=== PATIENT | female | born 1965 | race Caucasian/White ===

== ENCOUNTER 2020-02-26 12:37 | Emergency (ER) | payer OTHER, SELFPAY ==
--- NOTE | ~2020-02-26 | XR_ITS ---
XR knee RT 3V 02/26/2020 14:15 Indication: Right knee pain Procedure: 3 views right knee Comparison: No prior studies for comparison. Findings: No acute fracture or traumatic malalignment. There is a small joint effusion. No significan t degenerative change. No radiopaque foreign bodies. Mild prepatellar soft tissue swelling. Impression: 1: Small joint effusion with mild prepatellar soft tissue swelling. Reviewed, dictated and finalized at location A. Impression: 1: Small joint effusion with mild prepatellar soft tissue swelling.
--- NOTE | ~2020-02-26 | US_ITS ---
EXAMINATION:US venous doppler LE RT INDICATION:Leg swelling TECHNIQUE: Multiple grayscale, color flow and Doppler images of the right lower extremity deep venous systems were obtained and reviewed. COMPARISON:No prior studies for comparison. FINDINGS: The common femoral, superficial femoral and popliteal veins demonstrate normal respiratory variation, augmentation and compressibility. Color flow is also seen within the posterior tibial, pe roneal, greater saphenous and profunda veins. IMPRESSION: 1: No lower extremity deep venous thrombosis. Reviewed, dictated and finalized at location A.
[2020-02-26 12:51] VITALS: BP 110/82; PULSE 80; RESP 18; TEMP 37; O2SAT 99
--- NOTE | 2020-02-26 13:22 | ED.GENADULT ---
HPI - General Adult General Chief complaint: Extremity Injury, Lower Stated complaint: KNEE PAIN & SWELLING Time Seen by Provider: 02/26/20 13:03 Source: patient Mode of arrival: ambulatory Limitations: no limitations History of Present Illness HPI narrative: Patient is a 54-year-old female who presents to emergency department for evaluation of right leg swelling and knee swelling noting aching pain worse with weightbearing and activity felt a pop in the knee while ambulating initially had moderate aching pain and swelling at the medial aspect of the right knee patient notes that today she woke and has noticed that she has swelling of the Mr. Flores first 82-year-old single right foot is notes aching pain worse with weightbearing and activity denies any injury of the foot and is otherwise resting comfortably in the room on arrival in no distress presents per private vehicle Related Data Allergies Allergy/AdvReac Type Severity Reaction Status Date / Time aspirin Allergy Unknown Verified 05/12/18 18:50 ciprofloxacin Allergy Unknown Verified 05/12/18 18:50 codeine Allergy Unknown Dyspnea / Verified 05/12/18 18:50 SOB erythromycin base Allergy Unknown Verified 05/12/18 18:50 NSAIDS (Non-Steroidal Allergy Unknown Verified 05/12/18 18:50 Anti-Inflamma Penicillins Allergy Unknown Verified 05/12/18 18:50 Sulfa (Sulfonamide Allergy Unknown Verified 05/12/18 18:50 Antibiotics) Review of Systems Review of Systems: All systems reviewed & are unremarkable except as noted in HPI and below PMFSH Past Medical History Medical History (Updated 02/26/20 @ 14:49 by Derek Valencia PA-C) Bipolar disorder Social History Social History (Updated 02/26/20 @ 13:25 by Derek Valencia PA-C) Smoking status: Current every day smoker Gender identity (if verbalized by the patient): Female Exam Narrative: Exam Narrative: GENERAL: Well-appearing, well-nourished, and in no acute distress. HEAD: Normocephalic, atraumatic. EYES: PERRLA and EOMI. ENT: Nares clear, no rhinorrhea or epistaxis. Mucous membranes moist. CHEST: Clear to auscultation. No respiratory distress. No wheezes rales or rhonchi HEART: Regular rate and rhythm. No murmur heard. Normal peripheral pulses. EXTREMITIES: Normal range of motion. Tenderness of the medial aspect of the right knee minimal swelling noted. 1+ edema of the dorsal surface of the right foot with mild tenderness no erythema or other complaints SKIN: Warm, dry, no rash. NEURO: No focal deficits. Alert and oriented x3. Neurovascularly intact. Capillary refill less than 2 seconds PSYCH: Normal mood and affect. Course Course Emergency Course: Patient in the room aware of case findings treatment plan and diagnosis agreeing to follow-up as directed or to return if symptoms worsen or concerns Vital Signs Vital signs: Vital Signs Temperature 98.6 F 02/26/20 12:51 Pulse Rate 80 02/26/20 12:51 Respiratory Rate 18 02/26/20 12:51 Blood Pressure 110/82 02/26/20 12:51 Pulse Oximetry 99 02/26/20 12:51 Temperature 98.6 F 02/26/20 12:51 Pulse Rate 80 02/26/20 12:51 Respiratory Rate 18 02/26/20 12:51 Blood Pressure 110/82 02/26/20 12:51 Pulse Oximetry 99 02/26/20 12:51 Medical Decision Making MDM Narrative Medical decision making narrative: Patients injury or pain is consistent with musculoskeletal etiology. No signs of neurological or vascular compromise on exam. Compartments and tisues are soft without signs of compartment syndrome. Pain is felt appropriate for further evaluation on an outpatient basis. Vital Signs Vital Signs: Vital Signs Temperature 98.6 F 02/26/20 12:51 Pulse Rate 80 02/26/20 12:51 Respiratory Rate 18 02/26/20 12:51 Blood Pressure 110/82 02/26/20 12:51 Pulse Oximetry 99 02/26/20 12:51 Temperature 98.6 F 02/26/20 12:51 Pulse Rate 80 02/26/20 12:51 Respiratory Rate 18 02/26/20 12:51 Blood Pressure 110/82
[2020-02-26 15:05] VITALS: BP 122/70; PULSE 78; RESP 18; O2SAT 99
== END 2020-02-26 15:08 | disposition home or self-care (01) ==
PROVIDERS: Emergency Provider Emergency Medicine
DX: M25.561 Pain in right knee (principal)
CPT/HCPCS: 73562; 93971; 99284

== ENCOUNTER 2020-03-15 12:07 | Outpatient (CLI) | payer OTHER, SELFPAY ==
[2020-03-15 13:33] LABS: Basophils Absolute Auto 0.1 K/mm3 (0.0-0.1); Eosinophils Absolute Auto 0.2 K/mm3 (0-0.3); Eosinophils Percent Auto 2.4 % (0-4.4); Hematocrit 40.5 % (37.0-47.0); Hemoglobin 13.4 g/dL (12.0-15.0); Immature Granulocyte Absolute 0.04 K/mm3 (0.00-0.031); Immature Granulocyte Percent A 0.6 % (0-0.5); Lymphocytes Absolute Auto 2.31 K/mm3 (0.9-3.2); Lymphocytes Percent Auto 33.3 % (18.3-44.2); Mean Corpuscular HGB Conc 33.1 g/dl (32-36); Mean Corpuscular Hemoglobin 29.8 pg (26-34); Mean Platelet Volume 8.8 fl (7.4-10.4); Monocytes Absolute Auto 0.5 K/mm3 (0.1-0.6); Monocytes Percent Auto 7.3 % (2.6-8.5); Neutrophils Absolute Auto 3.8 K/mm3 (1.3-6.7); Neutrophils Percent Auto 55.4 % (45.5-73.1); Platelet Count Result 298 k/mm3 (150-375); Red Cell Distribution Width 14.4 % (11.5-14.5); White Blood Count 6.9 K/mm3 (4.5-10.0)
[2020-03-15 13:48] LABS: Alanine Aminotransferase 16 U/L (4-35); Albumin Level 4.2 g/dL (3.5-5.1); Alkaline Phosphatase 58 U/L (38-126); Aspartate Amino Transferase 17 U/L (14-36); Bilirubin,Total 0.2 mg/dL (0.2-1.3); Blood Urea Nitrogen 18 mg/dL (7-17); Carbon Dioxide 26 mmol/L (22-30); Chloride 104 mmol/L (98-107); Cholesterol 194 mg/dL (0-200); Estimated Glomerular Filt Rate > 60; Glucose 97 mg/dL (65-105); HDL Direct 41 mg/dL; Potassium 4.5 mmol/L (3.4-5.0); Sodium 139 mmol/L (137-145); Triglycerides 262 mg/dL (<150)
[2020-03-15 13:53] LABS: Add Urine Microscopic? YES; Appearance Urine Clear (Clear); Bilirubin Urine Negative (Negative); Blood Urine Negative (Negative); Color Urine Yellow (Yellow); Glucose Urine UA Negative (Negative); Ketones Urine Negative (Negative); Leukocyte Esterase Ur Negative LEU/UL (NEGATIVE); Mucus Urine Rare /lpf; Nitrate Urine Negative (Negative); Protein Urine 1+ mg/dL (Negative); RBC Urine 0-2 /hpf (0-2); Squamous Epithelial Cell Urine Moderate /hpf (Few); Urobilinogen Urine Negative mg/dL (<2.0); WBC Urine 0-3 /hpf (0-3)
[2020-03-15 13:59] LABS: LDL Cholesterol Direct 113 mg/dL
[2020-03-15 14:02] LABS: Iron 71 ug/dL (37-170)
[2020-03-15 14:13] LABS: Percent Iron Saturation 21 % (20-50)
[2020-03-15 14:54] LABS: Folic Acid 4.1 ng/mL (2.76->20)
== END 2020-03-15 12:08 | disposition home or self-care (01) ==
LOC: ANHLAB 12:09
PROVIDERS: PCP Physician Assistant; Visit Provider Physician Assistant
DX: I25.10 Atherosclerotic heart disease of native coronary artery without angina pectoris (principal); F31.9 Bipolar disorder, unspecified; R51 Headache; N20.0 Calculus of kidney
CPT/HCPCS: 36415; 80053; 80061; 81001; 82607; 82746; 83540; 83550; 84443; 85025

== ENCOUNTER 2020-08-28 06:54 | Outpatient (NON) | payer OTHER, SELFPAY ==
[2020-08-29 16:06] LABS: SARS-CoV-2 RNA PCR Negative
== END 2020-08-28 06:55 ==
PROVIDERS: Visit Provider Family Medicine
DX: J20.9 Acute bronchitis, unspecified (principal); Z20.828 Contact with and (suspected) exposure to other viral communicable diseases
CPT/HCPCS: 87635; C9803; U0003

== ENCOUNTER 2020-10-09 16:12 | Emergency (ER) | payer OTHER, SELFPAY ==
--- NOTE | ~2020-10-09 | CT_ITS ---
EXAMINATION: CT abdomen pelvis wo con DATE: 10/09/2020 17:11 INDICATION: Left flank pain TECHNIQUE: Computed tomography (CT) of the abdomen and pelvis was performed without intravenous contr ast. The dose-length product (DLP) was 821.89 mGy-cm. Automated exposure control and iterative recons truction technique were employed. COMPARISON: None FINDINGS: Minimal dependent atelectasis is present in the lung bases. The heart size is normal. The g allbladder is surgically absent. There is mild enlargement of the common bile duct and central intrah epatic ducts which is likely due to post cholecystectomy state. The liver, spleen, pancreas, and adre nal glands are normal. The kidneys are normal. No stones are identified in the kidneys, ureters, or b ladder. There is no hydronephrosis or hydroureter. No pathologically enlarged abdominal or pelvic lym ph nodes are identified. There is no free intraperitoneal gas or evidence of bowel obstruction. There are fat-containing umbilical and periumbilical hernias. Mild lumbar spondylosis is noted. IMPRESSION: 1. No CT correlate for the patient's symptoms. Reviewed, dictated and finalized at location A. HT TESTER
[2020-10-09 16:41] VITALS: BP 128/77; PULSE 86; RESP 18; TEMP 35.8; O2SAT 98
[2020-10-09 17:04] LABS: Basophils Absolute Auto 0.1 K/mm3 (0.0-0.1); Basophils Percent Auto 0.5 % (0.2-1.2); Eosinophils Absolute Auto 0.2 K/mm3 (0-0.3); Eosinophils Percent Auto 1.4 % (0-4.4); Hematocrit 45.8 % (37.0-47.0); Immature Granulocyte Absolute 0.04 K/mm3 (0.00-0.031); Immature Granulocyte Percent A 0.4 % (0-0.5); Lymphocytes Absolute Auto 3.33 K/mm3 (0.9-3.2); Lymphocytes Percent Auto 32.1 % (18.3-44.2); Mean Corpuscular HGB Conc 34.9 g/dl (32-36); Mean Corpuscular Hemoglobin 30.2 pg (26-34); Mean Corpuscular Volume 86.4 fl (80-100); Monocytes Absolute Auto 0.6 K/mm3 (0.1-0.6); Monocytes Percent Auto 6.2 % (2.6-8.5); Neutrophils Absolute Auto 6.2 K/mm3 (1.3-6.7); Neutrophils Percent Auto 59.4 % (45.5-73.1); Platelet Count Result 360 k/mm3 (150-375); Red Cell Distribution Width 13.2 % (11.5-14.5); White Blood Count 10.4 K/mm3 (4.5-10.0)
[2020-10-09 17:11] LABS: Add Urine Microscopic? YES; Appearance Urine Clear (Clear); Bacteria Urine Trace /hpf; Bilirubin Urine Negative (Negative); Blood Urine Negative (Negative); Color Urine Colorless (Yellow); Glucose Urine UA Negative (Negative); Ketones Urine Negative (Negative); Leukocyte Esterase Ur Negative LEU/UL (Negative); Mucus Urine Rare /lpf; Nitrate Urine Negative (Negative); Protein Urine Negative (Negative); Specific Grav Ur 1.009 (1.001-1.035); Squamous Epithelial Cell Urine Moderate /hpf (Few); Urobilinogen Urine Negative mg/dL (<2.0); WBC Urine 0-3 /hpf
[2020-10-09 17:16] LABS: Anion Gap 9 mmol/L (8-16); Blood Urea Nitrogen 13 mg/dL (7-17); Calcium 9.4 mg/dL (8.4-10.2); Carbon Dioxide 26 mmol/L (22-30); Chloride 102 mmol/L (98-107); Estimated CRCL calculation 77 ml/min; Estimated Glomerular Filt Rate > 60; Glucose 102 mg/dL (65-105); Potassium 4.1 mmol/L (3.4-5.0); Sodium 137 mmol/L (137-145)
[2020-10-09] MEDS: SODIUM CHLORIDE 0.9% IV 1,000 ML 999 ML IV CONT (17:43)
[2020-10-09] MEDS: ACETAMINOPHEN 500 MG TABLET 1000 MG PO (17:44)
--- NOTE | 2020-10-09 17:54 | ED.ABDPAIN ---
HPI - Abdominal Pain General Chief Complaint: Urogenital-Female Stated Complaint: left flank pain Time Seen by Provider: 10/09/20 16:52 History of Present Illness HPI narrative: Patient is a 55-year-old female who presents ER with concerns for kidney stone. Last kidney stone was 2 years ago. She has had multiple procedures to remove kidney stones. Reports has been having some flank pain on the left side over the last week. She is now developed lower abdominal pain left lower quadrant. No urinary frequency urgency or hematuria. No dysuria. She has been without fevers chills or sweats. No nausea or vomiting. Has not found any alleviating factors. Related Data Home Medications Medication Instructions Recorded Confirmed alprazolam 0.5 mg tablet 0.5 mg PO TID tablet 03/12/20 03/12/20 aripiprazole 10 mg tablet 10 mg PO DAILY 03/12/20 03/12/20 atorvastatin 40 mg tablet 40 mg PO DAILY 03/12/20 03/12/20 divalproex 250 mg tablet,delayed 250 mg PO Q12H 03/12/20 03/12/20 release estradiol 0.25 mg/0.25 gram (0.1 1 packet TRANSDERM DAILY 03/12/20 03/12/20 %) transdermal gel packet fluoxetine 20 mg capsule 20 mg PO DAILY 03/12/20 03/12/20 hydrochlorothiazide 12.5 mg tablet 12.5 mg PO DAILY 03/12/20 03/12/20 propranolol 80 mg tablet 80 mg PO Q12H 03/12/20 03/12/20 tramadol 50 mg tablet 50 mg PO Q4H PRN 03/12/20 03/12/20 trazodone 100 mg tablet 100 mg PO BID 03/12/20 03/12/20 Allergies Allergy/AdvReac Type Severity Reaction Status Date / Time aspirin Allergy Unknown Hives Verified 10/09/20 16:41 ciprofloxacin Allergy Unknown Unknown Verified 10/09/20 16:41 codeine Allergy Unknown Dyspnea / Verified 05/12/18 18:50 SOB erythromycin base Allergy Unknown Hives Verified 10/09/20 16:41 NSAIDS (Non-Steroidal Allergy Unknown Difficulty Verified 10/09/20 16:41 Anti-Inflamma Breathing Penicillins Allergy Unknown Difficulty Verified 10/09/20 16:41 Breathing Sulfa (Sulfonamide Allergy Unknown Difficulty Verified 10/09/20 16:41 Antibiotics) Breathing Review of Systems Review of Systems: All systems reviewed & are unremarkable except as noted in HPI and below Constitutional: Constitutional: Denies chills, Denies fever(s) and Denies weakness Respiratory: Respiratory: Denies cough and Denies dyspnea Gastrointestinal: Gastrointestinal: Reports abdominal pain, Denies diarrhea, Denies nausea and Denies vomiting Genitourinary: Genitourinary: Denies hematuria, Denies nocturia, Denies dysuria and Reports flank pain PMFSH Past Medical History Medical History (Updated 10/09/20 @ 17:57 by Clark López MD) Acute bronchitis Allergies Anxiety Arthritis Bipolar disorder Bipolar disorder BMI 29.0-29.9,adult Chronic anxiety Chronic headaches Colon polyps Coronary artery disease Depression Frequent headaches History of kidney stones Hypercholesterolemia IBS (irritable bowel syndrome) Irritable bowel syndrome with constipation Kidney stones Osteoarthritis, multiple sites Seasonal allergies Tobacco abuse Surgical History Surgical History (Updated 03/12/20 @ 10:45 by Lei Escobar PA-C) History of ankle surgery Hx of appendectomy Hx of section 1989, 1991 Hx of cholecystectomy Hx of foot surgery x3 Hx of hysterectomy Family History Family History (Updated 03/12/20 @ 09:56 by Rl Graham [employer]) Father Diabetes mellitus Grandparent Cerebrovascular accident Grandparent Cancer Sibling Cancer Social History Social History (Updated 03/12/20 @ 09:57 by Rl Graham [facility]) Smoking status: Current every day smoker Tobacco type: cigarettes Alcohol intake: never Substance use: never Gender identity (if verbalized by the patient): Female Exam Narrative: Exam Narrative: GENERAL: Well-appearing, well-nourished, and in no acute distress. HEAD: Normocephalic, atraumatic. CHEST: Clear to auscultation. No respiratory distress. HEART: Regul
== END 2020-10-09 18:34 | disposition home or self-care (01) ==
PROVIDERS: Emergency Provider Emergency Medicine; PCP Family Medicine
DX: R10.32 Left lower quadrant pain (principal); F41.9 Anxiety disorder, unspecified; M19.90 Unspecified osteoarthritis, unspecified site; F31.9 Bipolar disorder, unspecified; I25.10 Atherosclerotic heart disease of native coronary artery without angina pectoris; F17.210 Nicotine dependence, cigarettes, uncomplicated
CPT/HCPCS: 36415; 74176; 80048; 81001; 85025; 99284; A9270; J7030

== ENCOUNTER → 2021-05-23 04:03 | Outpatient (CLI) | payer OTHER, SELFPAY ==
[2021-05-23 18:14] LABS: SARS-CoV-2 RNA PCR Positive
== END ==
PROVIDERS: PCP Family Medicine; Visit Provider Family Medicine
DX: U07.1 COVID-19 (principal)
CPT/HCPCS: C9803; U0003; U0005

== ENCOUNTER 2021-06-03 15:51 | Outpatient (CLI) | payer OTHER, SELFPAY ==
[2021-06-03 16:18] LABS: Add Urine Microscopic? NO; Appearance Urine Clear (Clear); Bilirubin Urine Negative (Negative); Blood Urine Negative (Negative); Color Urine Colorless (Yellow); Glucose Urine UA Negative (Negative); Ketones Urine Negative (Negative); Leukocyte Esterase Ur Negative LEU/UL (NEGATIVE); Nitrate Urine Negative (Negative); Protein Urine Negative (Negative); Specific Grav Ur 1.006 (1.001-1.035); Urobilinogen Urine Negative mg/dL (<2.0)
[2021-06-03 16:18] LABS: Basophils Absolute Auto 0.1 K/mm3 (0.0-0.1); Basophils Percent Auto 0.8 % (0.2-1.2); Eosinophils Absolute Auto 0.1 K/mm3 (0-0.3); Eosinophils Percent Auto 1.8 % (0-4.4); Hematocrit 39.1 % (37.0-47.0); Hemoglobin 13.1 g/dL (12.0-15.0); Immature Granulocyte Absolute 0.02 K/mm3 (0.00-0.031); Immature Granulocyte Percent A 0.3 % (0-0.5); Lymphocytes Absolute Auto 3.44 K/mm3 (0.9-3.2); Lymphocytes Percent Auto 46.8 % (18.3-44.2); Mean Corpuscular HGB Conc 33.5 g/dl (32-36); Mean Corpuscular Hemoglobin 29.7 pg (26-34); Mean Corpuscular Volume 88.7 fl (80-100); Mean Platelet Volume 9.3 fl (7.4-10.4); Monocytes Absolute Auto 0.5 K/mm3 (0.1-0.6); Monocytes Percent Auto 6.4 % (2.6-8.5); Neutrophils Absolute Auto 3.2 K/mm3 (1.3-6.7); Neutrophils Percent Auto 43.9 % (45.5-73.1); Platelet Count Result 286 k/mm3 (150-375); Red Blood Count 4.41 M/mm3 (4.2-5.4); Red Cell Distribution Width 13.3 % (11.5-14.5); White Blood Count 7.4 K/mm3 (4.5-10.0)
[2021-06-03 16:55] LABS: Alanine Aminotransferase 15 U/L (4-35); Albumin Level 4.1 g/dL (3.5-5.1); Alkaline Phosphatase 68 U/L (38-126); Anion Gap 9 mmol/L (8-16); Aspartate Amino Transferase 18 U/L (14-36); Bilirubin,Total 0.5 mg/dL (0.2-1.3); Blood Urea Nitrogen 8 mg/dL (7-17); Calcium 9.3 mg/dL (8.4-10.2); Carbon Dioxide 30 mmol/L (22-30); Chloride 103 mmol/L (98-107); Cholesterol 116 mg/dL (0-200); Estimated Glomerular Filt Rate > 60; Glucose 96 mg/dL (65-110); HDL Direct 34 mg/dL; Potassium 3.6 mmol/L (3.4-5.0); Sodium 142 mmol/L (137-145); Triglycerides 266 mg/dL (<150)
[2021-06-03 17:08] LABS: LDL Cholesterol Direct 42 mg/dL
[2021-06-03 17:21] LABS: Iron 73 ug/dL (37-170)
[2021-06-03 17:22] LABS: Hemoglobin A1C 5.6 % (<5.7)
[2021-06-04 15:54] LABS: Folic Acid 4.9 ng/mL (2.76->20)
== END 2021-06-03 15:52 | disposition home or self-care (01) ==
LOC: ANHLAB 15:53
PROVIDERS: PCP Family Medicine; Visit Provider Family Medicine
DX: E78.2 Mixed hyperlipidemia (principal); N20.0 Calculus of kidney; F31.9 Bipolar disorder, unspecified; G47.33 Obstructive sleep apnea (adult) (pediatric)
CPT/HCPCS: 36415; 80053; 80061; 81003; 82607; 82746; 83036; 83540; 84443; 85025

== ENCOUNTER 2023-02-16 09:53 | Outpatient (CLI) | payer OTHER, SELFPAY ==
[2023-02-16 10:13] LABS: Basophils Absolute Auto 0.1 K/mm3 (0.0-0.1); Basophils Percent Auto 0.8 % (0.2-1.2); Eosinophils Absolute Auto 0.2 K/mm3 (0-0.3); Eosinophils Percent Auto 2.7 % (0-4.4); Hemoglobin 13.9 g/dL (12.0-15.0); Immature Granulocyte Absolute 0.03 K/mm3 (0.00-0.031); Immature Granulocyte Percent A 0.4 % (0-0.5); Lymphocytes Absolute Auto 2.52 K/mm3 (0.9-3.2); Lymphocytes Percent Auto 32.5 % (18.3-44.2); Mean Corpuscular HGB Conc 34.8 g/dl (32-36); Mean Corpuscular Volume 86.2 fl (80-100); Mean Platelet Volume 8.7 fl (7.4-10.4); Monocytes Absolute Auto 0.5 K/mm3 (0.1-0.6); Monocytes Percent Auto 6.2 % (2.6-8.5); Neutrophils Absolute Auto 4.5 K/mm3 (1.3-6.7); Neutrophils Percent Auto 57.4 % (45.5-73.1); Platelet Count Result 363 k/mm3 (150-375); Red Blood Count 4.64 M/mm3 (4.2-5.4); Red Cell Distribution Width 13.5 % (11.5-14.5); White Blood Count 7.8 K/mm3 (4.5-10.0)
[2023-02-16 10:28] LABS: Hemoglobin A1C 5.7 % (<5.7)
[2023-02-16 10:32] LABS: Anion Gap 9 mmol/L (8-16); Carbon Dioxide 28 mmol/L (22-30); Chloride 102 mmol/L (98-107); Potassium 3.7 mmol/L (3.4-5.0); Sodium 139 mmol/L (137-145)
[2023-02-16 10:33] LABS: Alanine Aminotransferase 53 U/L (6-35); Albumin Level 4.3 g/dL (3.5-5.1); Alkaline Phosphatase 79 U/L (38-126); Aspartate Amino Transferase 33 U/L (14-36); Bilirubin,Total 0.6 mg/dL (0.2-1.3); Blood Urea Nitrogen 12 mg/dL (7-17); Cholesterol 156 mg/dL (0-200); Estimated Glomerular Filt Rate > 60; Glucose 116 mg/dL (65-110); HDL Direct 39 mg/dL; Triglycerides 380 mg/dL (<150)
[2023-02-16 10:43] LABS: Appearance Urine Cloudy (Clear); Bacteria Urine 1+ /hpf; Bilirubin Urine Negative (Negative); Blood Urine Negative (Negative); Color Urine Yellow (Yellow); Glucose Urine UA Negative (Negative); Ketones Urine Negative (Negative); Leukocyte Esterase Ur Negative LEU/UL (NEGATIVE); Mucus Urine Present /lpf; Nitrate Urine Negative (Negative); Non Pathogenic Casts 0-2; Protein Urine Negative (Negative); RBC Urine 0-2 /hpf (0-2); Specific Grav Ur 1.017 (1.001-1.035); Squamous Epithelial Cell Urine Moderate /hpf (Few)
[2023-02-16 10:43] LABS: LDL Cholesterol Direct 67 mg/dL
[2023-02-16 10:51] LABS: Add Urine Microscopic? YES
[2023-02-16 11:36] LABS: Folic Acid 2.9 ng/mL (2.76->20)
== END 2023-02-16 09:54 | disposition home or self-care (01) ==
LOC: ANHLAB 09:54
PROVIDERS: PCP Family Medicine; Visit Provider Family Medicine
DX: G47.33 Obstructive sleep apnea (adult) (pediatric) (principal); E78.2 Mixed hyperlipidemia; R73.01 Impaired fasting glucose; F31.9 Bipolar disorder, unspecified
CPT/HCPCS: 36415; 80053; 80061; 81001; 82607; 82746; 83036; 84443; 85025

== ENCOUNTER → 2023-10-22 10:40 | Outpatient (CLI) | payer OTHER, SELFPAY ==
--- NOTE | ~2023-10-22 | XR_ITS ---
XR finger 2nd LT min 2V DATE: 10/22/2023 10:53 INDICATION: Foreign body/glass at DIP joint area TECHNIQUE: 4 views COMPARISON: None FINDINGS: No radiopaque soft tissue foreign body is present. No fracture or dislocation, periosteal reaction or bone destruction. Joint spaces appear relatively p reserved. IMPRESSION: No radiopaque soft tissue foreign body of second digit Reviewed, dictated and finalized at location B. TRICAL CAD TECHNICIAN
== END ==
PROVIDERS: PCP Family Medicine; Visit Provider Nurse Practitioner Family
DX: S61.211A Laceration without foreign body of left index finger without damage to nail, initial encounter (principal); X58.XXXA Exposure to other specified factors, initial encounter
CPT/HCPCS: 73140

== ENCOUNTER 2024-01-25 00:21 | Day surgery (SDC) | payer OTHER, SELFPAY ==
[2024-01-07 11:42] VITALS: BMI 32.3
[2024-01-25 07:41] VITALS: BP 132/88; PULSE 88; RESP 18; TEMP 36; O2SAT 97
[2024-01-25] MEDS: LACTATED RINGERS 1,000 ML 150 ML IV CONT (07:52)
--- NOTE | 2024-01-25 08:14 | PM.HPGS ---
History of Present Illness History of Present Illness Consent: Risks, benefits, and alternatives have been discussed and questions answered. Patient agrees to proceed with procedure. Chief complaint: Polyp of colon, Irritable bowel syndrome-C Narrative: Mena Hebert is a 58 year old female with colon polyp 5 years ago Review of Systems Review of Systems: All systems reviewed & are unremarkable except as noted in HPI and below PMFSH Past Medical History Medical History (Updated 10/22/23 @ 10:46 by Nereyda Correa NP) Abnormal fasting glucose glucose normal at 96 with hemoglobin A1c 5.6 on 06/03/2021. Fasting glucose 116 with hemoglobin A1c 5.7 on 02/16/2023. Hemoglobin A1c 6.1 on 10/15/2023. Abscessed tooth Acute bronchitis Atypical chest pain Bipolar disorder BMI 27.0-27.9,adult BMI 28.0-28.9,adult BMI 29.0-29.9,adult BMI 30.0-30.9,adult BMI 32.0-32.9,adult Chronic anxiety Chronic headaches Colon polyps Coronary artery disease Cardiac catheterization 2016 with 20% lesion in the distal circumflex artery with normal echocardiogram 2018 and stress test in 2019 followed by chute tender RK-19 (05/20/21) Cut of skin of left index finger Edema of both lower extremities due to peripheral venous insufficiency (~2021) venous Doppler on 09/29/2022 with no evidence of DVT. Significant venous insufficiency of the right greater and small saphenous veins. Elevated liver enzymes (02/16/23) AST normal at 33 with ALT elevated at 53 on 02/16/2023. Essential (primary) hypertension Exposure to COVID-19 virus Frequent headaches History of kidney stones Hormone replacement therapy Patient stopped due to noncompliance Irritable bowel syndrome with constipation Kidney stones Mixed hyperlipidemia total cholesterol 116, triglycerides 266, HDL 34 and LDL 42 on 06/03/2021. Cholesterol 156, triglycerides 380, HDL 39, LDL 67 on 02/16/2023. Obesity (BMI 30.0-34.9) Obstructive sleep apnea failure on CPAP Osteoarthritis, multiple sites Overweight (BMI 25.0-29.9) Pain of finger of left hand Pharyngitis Screening for breast cancer Seasonal allergies Suprapubic pain Tobacco abuse Vitamin B12 deficiency (02/16/23) level low at 305 with goal greater than 400 with folic acid and 2.9 in hemoglobin 13.9 on 02/16/2023. Surgical History Surgical History H/O tubal ligation History of ankle surgery Hx of abdominal surgery Hx of appendectomy Hx of section 1989, 1991 Hx of cholecystectomy Hx of foot surgery x3 Hx of hysterectomy partial and full Family History Family History Father Diabetes mellitus Grandparent Cerebrovascular accident Grandparent Cancer Sibling Cancer Social History Social History Smoking packs per day: 0.5 Smoking cigarettes per day: 10.0 Years smoked: 10 Smoking pack-years: 5.00 Smoking status: Current every day smoker Tobacco type: cigarettes Alcohol intake: never Substance use: current Substance use type: marijuana Other substance usage details: gummies on occasion Last use: 01/04 Lack of Transportation: YES Lack of Food: Never True Current Housing: I Have Housing Concerned About Future Housing: No Difficulty Paying Gas/Electric Bills: No Difficulty Paying for Meds: No Currently Unemployed: No Education: High School Diploma/GED Difficulty w/ Childcare or Family Care: No Living arrangements: with friend(s) Gender identity (if verbalized by the patient): Female Spiritual care concerns: No Meds Home Medications and Allergies Home Medications Medication Instructions Recorded Confirmed Type atorvastatin 40 mg tablet 40 mg PO DAILY 03/12/20 01/07/24 History fluoxetine 20 mg capsule 40 mg PO DAILY 03/12/20 01/07/24 History hydrochlorothiazide 12.5
--- NOTE | 2024-01-25 08:30 | WPDANESEPPF ---
Anes - Initial Pre Proc Eval Procedure: Operation Date: 01/25/24 09:00 Proposed Procedures p Colonoscopy - Luiz Menchaca MD Date/Time: 01/25/24 08:30 Surgeon: Luiz Menchaca MD Pre Op Diagnosis: Polyp of colon, Irritable bowel syndrome-C Patient Data Age: 58 Gender: F Height: 1.68 m Weight: 94.9 kg Last Vital Signs Temp 96.8 F L 01/25/24 07:41 Pulse 88 01/25/24 07:41 Resp 18 01/25/24 07:41 BP 132/88 01/25/24 07:41 Pulse Ox 97 01/25/24 07:41 O2 Del Method Room Air 01/25/24 07:41 Allergies Allergy/AdvReac Type Severity Reaction Status Date / Time aspirin Allergy Unknown Hives Verified 01/25/24 07:40 ciprofloxacin Allergy Unknown Unknown Verified 01/25/24 07:40 codeine Allergy Unknown Dyspnea / Verified 01/25/24 07:40 SOB erythromycin base Allergy Unknown Hives Verified 01/25/24 07:40 NSAIDS (Non-Steroidal Allergy Unknown Difficulty Verified 01/25/24 07:40 Anti-Inflamma Breathing Penicillins Allergy Unknown Difficulty Verified 01/25/24 07:40 Breathing Sulfa (Sulfonamide Allergy Unknown Difficulty Verified 01/25/24 07:40 Antibiotics) Breathing Home Medications Medication Instructions Recorded Confirmed Type atorvastatin 40 mg tablet 40 mg PO DAILY 03/12/20 01/07/24 History fluoxetine 20 mg capsule 40 mg PO DAILY 03/12/20 01/07/24 History hydrochlorothiazide 12.5 mg tablet 12.5 mg PO DAILY 03/12/20 01/07/24 History venlafaxine 75 mg capsule,extended 37.5 mg PO DAILY 12/18/20 01/07/24 History release 24 hr (Effexor XR) nitroglycerin 0.4 mg sublingual 0.4 mg sublingual Q5M PRN Chest 06/02/21 01/07/24 History tablet Pain cariprazine 4.5 mg capsule 1.5 mg PO DAILY 04/13/22 01/07/24 History (Vraylar) hydroxyzine HCl 50 mg tablet 50 mg PO BID PRN anxiety 04/13/22 01/07/24 History buspirone 10 mg tablet 7.5 mg PO BID 10/21/22 01/07/24 History cyanocobalamin (vitamin B-12) 1,000 mcg PO DAILY 04/11/23 01/07/24 History 1,000 mcg tablet propranolol 80 mg capsule,24 80 mg PO DAILY #90 caps 08/06/23 01/07/24 Rx hr,extended release amlodipine 10 mg tablet 10 mg PO DAILY 08/14/23 01/07/24 History famotidine 20 mg tablet (Pepcid) 20 mg PO QHS PRN reflux 10/22/23 01/07/24 History meloxicam 15 mg tablet 15 mg PO DAILY 10/22/23 01/07/24 History Patient hx anesthesia problems: none Family hx anesthesia problems: none Results Review: All pre-operative results and documents have been reviewed as part of the pre-operative evaluation. [facility] Past Medical History Medical History (Updated 10/22/23 @ 10:46 by Neryeda Correa NP) Abnormal fasting glucose glucose normal at 96 with hemoglobin A1c 5.6 on 06/03/2021. Fasting glucose 116 with hemoglobin A1c 5.7 on 02/16/2023. Hemoglobin A1c 6.1 on 10/15/2023. Abscessed tooth Acute bronchitis Atypical chest pain Bipolar disorder BMI 27.0-27.9,adult BMI 28.0-28.9,adult BMI 29.0-29.9,adult BMI 30.0-30.9,adult BMI 32.0-32.9,adult Chronic anxiety Chronic headaches Colon polyps Coronary artery disease Cardiac catheterization 2016 with 20% lesion in the distal circumflex artery with normal echocardiogram 2018 and stress test in 2019 followed by contact acid plant operator CHRIS (05/20/21) Cut of skin of left index finger Edema of both lower extremities due to peripheral venous insufficiency (~2021) venous Doppler on 09/29/2022 with no evidence of DVT. Significant venous insufficiency of the right greater and small saphenous veins. Elevated liver enzymes (02/16/23) AST normal at 33 with ALT elevated at 53 on 02/16/2023. Essential (primary) hypertension Exposure to COVID-19 virus Frequent headaches History of kidney stones Hormone replacement therapy Patient stopped due to noncompliance Irritable bowel syndrome with constipation Kidney stones Mixed hyperlipidemia total cholesterol 116, triglycerides 266, HDL 34 and LDL 42 on 06/03/2021. Cholesterol 156, triglycerides 380, HDL 39, LDL 67 on 02/16/2023. Obe
[2024-01-25 08:31] VITALS: BP 131/85; PULSE 107; RESP 23; O2SAT 93
[2024-01-25 08:41] VITALS: BP 126/79; PULSE 86; RESP 20; O2SAT 94
[2024-01-25 08:51] VITALS: BP 132/84; PULSE 85; RESP 18; O2SAT 95
== END 2024-01-25 08:53 | disposition home or self-care (01) ==
PROVIDERS: PCP Family Medicine; Visit Provider Internal Medicine Gastroenterology
PROC: 0DJD8ZZ Inspection of Lower Intestinal Tract, Via Natural or Artificial Opening Endoscopic (ICD-10-PCS; CPT 45378; principal; 2024-01-25 09:00)
DX: Z12.11 Encounter for screening for malignant neoplasm of colon (principal); I25.10 Atherosclerotic heart disease of native coronary artery without angina pectoris; I10 Essential (primary) hypertension; E78.2 Mixed hyperlipidemia; G47.33 Obstructive sleep apnea (adult) (pediatric); F41.9 Anxiety disorder, unspecified; F31.9 Bipolar disorder, unspecified; E53.8 Deficiency of other specified B group vitamins; E66.9 Obesity, unspecified; Z68.33 Body mass index [BMI] 33.0-33.9, adult; F17.210 Nicotine dependence, cigarettes, uncomplicated; F12.90 Cannabis use, unspecified, uncomplicated
CPT/HCPCS: 45378; J2704; J7120

== ENCOUNTER 2024-05-03 18:13 | Emergency (ER) | payer OTHER, SELFPAY ==
[2024-05-03 18:21] VITALS: BP 120/80; PULSE 96; RESP 16; TEMP 37.2; O2SAT 99
--- NOTE | 2024-05-03 18:24 | ED.BACK ---
HPI - Back Pain/Injury General Chief Complaint: Urogenital-Female Stated Complaint: UTI Time Seen by Provider: 05/03/24 18:30 Source: patient Mode of arrival: ambulatory Limitations: no limitations History of Present Illness HPI Narrative: Mena is a 58-year-old female patient presenting to the clinic today with complaints of right-sided flank pain and right lower quadrant abdominal pain. States that she does have a history of kidney stones and did pass a kidney stone on Wednesday and felt as though another kidney stone was passing however she believes that it may be obstructed. She denies any urinary symptoms but states every time she urinates she has to poop. She is reporting some nausea. Rates the pain 8/10 constant pain that is sharp and stabbing. States that this is what it feels like when she passes a kidney stone. Denies any fever or chills. Related Data Home Medications Medication Instructions Recorded Confirmed atorvastatin 40 mg tablet 40 mg PO DAILY 03/12/20 05/03/24 fluoxetine 20 mg capsule 40 mg PO DAILY 03/12/20 05/03/24 hydrochlorothiazide 12.5 mg tablet 12.5 mg PO DAILY 03/12/20 05/03/24 venlafaxine 75 mg capsule,extended 37.5 mg PO DAILY 12/18/20 05/03/24 release 24 hr (Effexor XR) nitroglycerin 0.4 mg sublingual 0.4 mg sublingual Q5M PRN Chest 06/02/21 05/03/24 tablet Pain cariprazine 4.5 mg capsule 1.5 mg PO DAILY 04/13/22 05/03/24 (Vraylar) hydroxyzine HCl 50 mg tablet 50 mg PO BID PRN anxiety 04/13/22 05/03/24 buspirone 10 mg tablet 7.5 mg PO BID 10/21/22 05/03/24 cyanocobalamin (vitamin B-12) 1,000 mcg PO DAILY 04/11/23 05/03/24 1,000 mcg tablet amlodipine 10 mg tablet 10 mg PO DAILY 08/14/23 05/03/24 famotidine 20 mg tablet (Pepcid) 20 mg PO QHS PRN reflux 10/22/23 05/03/24 meloxicam 15 mg tablet 15 mg PO DAILY 10/22/23 05/03/24 Allergies Allergy/AdvReac Type Severity Reaction Status Date / Time codeine Allergy Severe Dyspnea / Verified 05/03/24 18:24 SOB NSAIDS (Non-Steroidal Allergy Severe Difficulty Verified 05/03/24 18:24 Anti-Inflamma Breathing Penicillins Allergy Severe Difficulty Verified 05/03/24 18:24 Breathing Sulfa (Sulfonamide Allergy Severe Difficulty Verified 05/03/24 18:24 Antibiotics) Breathing aspirin Allergy Intermediate Hives Verified 05/03/24 18:24 erythromycin base Allergy Intermediate Hives Verified 05/03/24 18:24 ciprofloxacin Allergy Unknown Unknown Verified 05/03/24 18:24 Review of Systems Review of Systems: Pertinent positives per HPI. Patient denies any fever, chills, rash, headache, visual changes, dizziness, cough, runny nose, sore throat, shortness of breath, chest pain, palpitations, vomiting, diarrhea, constipation, abdominal pain, or any urinary issues. [facility] Past Medical History Medical History Abnormal fasting glucose glucose normal at 96 with hemoglobin A1c 5.6 on 06/03/2021. Fasting glucose 116 with hemoglobin A1c 5.7 on 02/16/2023. Hemoglobin A1c 6.1 on 10/15/2023. Abscessed tooth Acute bronchitis Atypical chest pain Bipolar disorder BMI 27.0-27.9,adult BMI 28.0-28.9,adult BMI 29.0-29.9,adult BMI 30.0-30.9,adult BMI 32.0-32.9,adult Chronic anxiety Chronic headaches Colon polyps Colonoscopy was normal on 01/25/2024 with recheck in 5 years. Coronary artery disease Cardiac catheterization 2016 with 20% lesion in the distal circumflex artery with normal echocardiogram 2018 and stress test in 2019 followed by netting inspector RK-19 (05/20/21) Cut of skin of left index finger Edema of both lower extremities due to peripheral venous insufficiency (~2021) venous Doppler on 09/29/2022 with no evidence of DVT. Significant venous insufficiency of the right greater and small saphenous veins. Elevated liver enzymes (02/16/23) AST normal at 33 with ALT elevated at 53 on 02/16/2023. Essential (primary) hypertension Exposure to COVID-19 virus Frequent headaches History of k
[2024-05-03 18:33] LABS: EDUAAPPEAR Clear; EDUABILI Negative; EDUABLOOD Negative; EDUACOLOR1 Yellow; EDUAGLUCOSE Negative; EDUAKETONE Negative; EDUALEUKO Negative; EDUANITRATE Negative; EDUAPROTEIN Trace; EDUAUROBILI 0.2
== END 2024-05-03 18:51 | disposition short-term general hospital (02) ==
PROVIDERS: Emergency Provider Nurse Practitioner Family; PCP Family Medicine
DX: R10.9 Unspecified abdominal pain (principal); R10.31 Right lower quadrant pain; Z87.442 Personal history of urinary calculi; F17.210 Nicotine dependence, cigarettes, uncomplicated; F12.90 Cannabis use, unspecified, uncomplicated; I25.10 Atherosclerotic heart disease of native coronary artery without angina pectoris; I10 Essential (primary) hypertension; E78.2 Mixed hyperlipidemia; M15.9 Polyosteoarthritis, unspecified; E53.8 Deficiency of other specified B group vitamins; E66.9 Obesity, unspecified; Z68.34 Body mass index [BMI] 34.0-34.9, adult; Z86.16 Personal history of COVID-19
CPT/HCPCS: 81003; 99212; G0463

== ENCOUNTER 2024-05-03 19:06 | Emergency (ER) | payer OTHER, SELFPAY ==
--- NOTE | ~2024-05-03 | CT_ITS ---
EXAMINATION: CT abdomen pelvis wo con DATE: 05/03/2024 20:34 INDICATION: Right flank pain. Nephrolithiasis. TECHNIQUE: Computed tomography (CT) of the abdomen and pelvis was performed without intravenous contr ast. Automated exposure control and iterative reconstruction technique were employed. The dose-length product was 799.41 mGy-cm. COMPARISON: 10/09/2020 FINDINGS: Lung bases are clear. Heart size is normal. No pericardial or pleural effusion. Small sliding-type hi atal hernia. Cholecystectomy clips the gallbladder fossa. 5 mm hepatic cyst. Spleen, pancreas and nigel ateral adrenal glands are normal. Kidneys and ureters are normal with no urolithiasis, hydroureterone phrosis or perinephric/ureteral stranding. A few unchanged phleboliths in the pelvis. Bladder is norm al. The uterus is not identified and has likely been surgically resected. Small bilateral fat-contain ing inguinal hernias. Bowels are normal. The appendix is not visualized. No pericecal inflammatory ch henry to suggest acute appendicitis. No free intraperitoneal gas or fluid. No pathologically enlarged abdominal or pelvic lymphadenopathy. L1 hemangioma. IMPRESSION: 1. No urolithiasis or other acute intra-abdominal/pelvic process. Reviewed, dictated and finalized at location A.
[2024-05-03 19:17] VITALS: BP 135/85; PULSE 104; RESP 14; TEMP 36.5; O2SAT 100
[2024-05-03 19:55] LABS: Basophils Percent Auto 0.4 % (0.2-1.2); Eosinophils Absolute Auto 0.2 K/mm3 (0-0.3); Eosinophils Percent Auto 2.4 % (0-4.4); Hematocrit 40.8 % (37.0-47.0); Hemoglobin 14.6 g/dL (12.0-15.0); Immature Granulocyte Absolute 0.04 K/mm3 (0.00-0.031); Immature Granulocyte Percent A 0.4 % (0-0.5); Lymphocytes Absolute Auto 3.14 K/mm3 (0.9-3.2); Lymphocytes Percent Auto 33.5 % (18.3-44.2); Mean Corpuscular HGB Conc 35.8 g/dl (32-36); Mean Corpuscular Hemoglobin 28.9 pg (26-34); Mean Corpuscular Volume 80.6 fl (80-100); Mean Platelet Volume 8.3 fl (7.4-10.4); Monocytes Absolute Auto 0.5 K/mm3 (0.1-0.6); Monocytes Percent Auto 5.8 % (2.6-8.5); Neutrophils Absolute Auto 5.4 K/mm3 (1.3-6.7); Neutrophils Percent Auto 57.5 % (45.5-73.1); Platelet Count Result 426 k/mm3 (150-375); Red Blood Count 5.06 M/mm3 (4.2-5.4); Red Cell Distribution Width 13.9 % (11.5-14.5); White Blood Count 9.4 K/mm3 (4.5-10.0)
[2024-05-03 20:06] LABS: Alanine Aminotransferase 27 U/L (6-35); Albumin Level 4.6 g/dL (3.5-5.1); Alkaline Phosphatase 86 U/L (38-126); Anion Gap 12 mmol/L (4-12); Aspartate Amino Transferase 26 U/L (14-36); Bilirubin,Total 0.7 mg/dL (0.2-1.3); Blood Urea Nitrogen 18 mg/dL (7-17); Calcium 9.5 mg/dL (8.4-10.2); Carbon Dioxide 24 mmol/L (22-30); Chloride 102 mmol/L (98-107); Estimated CRCL calculation 88 ml/min; Estimated Glomerular Filt Rate > 60; Glucose 112 mg/dL (65-110); Lipase 166 U/L (23-300); Potassium 3.6 mmol/L (3.4-5.0); Sodium 138 mmol/L (137-145)
--- NOTE | 2024-05-03 20:26 | ED.ABDPAIN ---
HPI - Abdominal Pain General Chief Complaint: Abdominal Pain Stated Complaint: flank pain Time Seen by Provider: 05/03/24 19:34 Source: patient Mode of arrival: ambulatory Limitations: no limitations History of Present Illness HPI narrative: Patient is a 58 y/o female who presents the ED with report of right flank pain. Patient reports pain began over the weekend and has persisted since then. Radiates through to her lower abdomen. She reports history of kidney stones and states pain feels similar. Does not currently see a urologist. reports nausea, vomiting, hot/cold sweats. Denies dysuria, hematuria, known fevers. Has been taking Tylenol for the pain w/o relief. Related Data Home Medications Medication Instructions Recorded Confirmed atorvastatin 40 mg tablet 40 mg PO DAILY 03/12/20 05/03/24 fluoxetine 20 mg capsule 40 mg PO DAILY 03/12/20 05/03/24 hydrochlorothiazide 12.5 mg tablet 12.5 mg PO DAILY 03/12/20 05/03/24 venlafaxine 75 mg capsule,extended 37.5 mg PO DAILY 12/18/20 05/03/24 release 24 hr (Effexor XR) nitroglycerin 0.4 mg sublingual 0.4 mg sublingual Q5M PRN Chest 06/02/21 05/03/24 tablet Pain cariprazine 4.5 mg capsule 1.5 mg PO DAILY 04/13/22 05/03/24 (Vraylar) hydroxyzine HCl 50 mg tablet 50 mg PO BID PRN anxiety 04/13/22 05/03/24 buspirone 10 mg tablet 7.5 mg PO BID 10/21/22 05/03/24 cyanocobalamin (vitamin B-12) 1,000 mcg PO DAILY 04/11/23 05/03/24 1,000 mcg tablet amlodipine 10 mg tablet 10 mg PO DAILY 08/14/23 05/03/24 famotidine 20 mg tablet (Pepcid) 20 mg PO QHS PRN reflux 10/22/23 05/03/24 meloxicam 15 mg tablet 15 mg PO DAILY 10/22/23 05/03/24 Allergies Allergy/AdvReac Type Severity Reaction Status Date / Time codeine Allergy Severe Dyspnea / Verified 05/03/24 18:24 SOB NSAIDS (Non-Steroidal Allergy Severe Difficulty Verified 05/03/24 18:24 Anti-Inflamma Breathing Penicillins Allergy Severe Difficulty Verified 05/03/24 18:24 Breathing Sulfa (Sulfonamide Allergy Severe Difficulty Verified 05/03/24 18:24 Antibiotics) Breathing aspirin Allergy Intermediate Hives Verified 05/03/24 18:24 erythromycin base Allergy Intermediate Hives Verified 05/03/24 18:24 ciprofloxacin Allergy Unknown Unknown Verified 05/03/24 18:24 Review of Systems Review of Systems: All systems reviewed & are unremarkable except as noted in HPI. All systems reviewed & are unremarkable except as noted in HPI and below [facility] Past Medical History Medical History Abnormal fasting glucose glucose normal at 96 with hemoglobin A1c 5.6 on 06/03/2021. Fasting glucose 116 with hemoglobin A1c 5.7 on 02/16/2023. Hemoglobin A1c 6.1 on 10/15/2023. Abscessed tooth Acute bronchitis Atypical chest pain Bipolar disorder BMI 27.0-27.9,adult BMI 28.0-28.9,adult BMI 29.0-29.9,adult BMI 30.0-30.9,adult BMI 32.0-32.9,adult Chronic anxiety Chronic headaches Colon polyps Colonoscopy was normal on 01/25/2024 with recheck in 5 years. Coronary artery disease Cardiac catheterization 2016 with 20% lesion in the distal circumflex artery with normal echocardiogram 2018 and stress test in 2019 followed by disk grinder RK-19 (05/20/21) Cut of skin of left index finger Edema of both lower extremities due to peripheral venous insufficiency (~2021) venous Doppler on 09/29/2022 with no evidence of DVT. Significant venous insufficiency of the right greater and small saphenous veins. Elevated liver enzymes (02/16/23) AST normal at 33 with ALT elevated at 53 on 02/16/2023. Essential (primary) hypertension Exposure to COVID-19 virus Frequent headaches History of kidney stones Hormone replacement therapy Patient stopped due to noncompliance Irritable bowel syndrome with constipation Kidney stones Mixed hyperlipidemia total cholesterol 116, triglycerides 266, HDL 34 and LDL 42 on 06/03/2021. Cholesterol 156, triglycerides 380, HDL 39, LDL 67 on 02/16/2023. Obe
[2024-05-03] MEDS: fentaNYL CITRATE INJ (*CRX) 100 MCG/2 ML VIAL 25 MCG IV PUSH (20:39)
[2024-05-03] MEDS: SODIUM CHLORIDE 0.9% IV 1,000 ML 999 ML IV CONT (20:39)
[2024-05-03] MEDS: ONDANSETRON INJ 4 MG/2 ML VIAL IV PUSH (20:39)
[2024-05-03 22:45] LABS: Add Urine Microscopic? YES; Appearance Urine Cloudy (Clear); Bacteria Urine 3+ /hpf; Bilirubin Urine Negative (Negative); Blood Urine Negative (Negative); Color Urine Dark Yellow (Yellow); Glucose Urine UA Negative (Negative); Ketones Urine Negative (Negative); Leukocyte Esterase Ur 1+ LEU/UL (Negative); Need Manual Microscopic Reviewed; Nitrate Urine Negative (Negative); Protein Urine 1+ mg/dL (Negative); RBC Urine 0-2 /hpf (0-2); Specific Grav Ur 1.024 (1.001-1.035); Squamous Epithelial Cell Urine Many /hpf (Few); WBC Urine 51-100 /hpf (0-3); pH Urine 5.5 (5.0-9.0)
[2024-05-03 23:17] VITALS: BP 123/78; PULSE 99; RESP 18; O2SAT 100
[2024-05-03] MEDS: CEPHALEXIN 500 MG CAPSULE PO (23:25)
== END 2024-05-03 23:45 | disposition home or self-care (01) ==
PROVIDERS: Emergency Medicine; Emergency Provider Physician Assistant; PCP Family Medicine
DX: N30.00 Acute cystitis without hematuria (principal); R10.9 Unspecified abdominal pain; F17.210 Nicotine dependence, cigarettes, uncomplicated; F31.9 Bipolar disorder, unspecified; F41.9 Anxiety disorder, unspecified; I10 Essential (primary) hypertension; Z87.442 Personal history of urinary calculi; M19.90 Unspecified osteoarthritis, unspecified site
CPT/HCPCS: 36415; 74176; 80053; 81001; 81003; 83690; 85025; 87086; 87088; 96361; 96374; 96375; 99284; A9270; J2405; J3010; J7030

== ENCOUNTER 2024-07-27 16:36 | Emergency (ER) | payer OTHER, SELFPAY ==
--- NOTE | ~2024-07-27 | CT_ITS ---
CT soft tissue neck w con Ordering provider: Emelia Cabello PA-C History: 59 years Female with . R facial swelling, dental infection . Comparison: None. Technique: CT soft tissues neck was performed with 75 mL of Omnipaque 350 intravenous contrast. . The dose-length product was 510.01 mGy-cm. Findings: LOWER HEAD: The visualized brain parenchyma, optic globes/orbits and mastoid air cells are unremarka ble. The visualized paranasal sinuses are clear. SALIVARY GLANDS: Symmetric and unremarkable THYROID: Heterogeneous enhancement for which nonemergent follow-up ultrasound may be performed. PAROTID GLANDS: Unremarkable and primarily symmetric. SUPRAHYOID DEEP SPACES: No rim-enhancing fluid collections. CAROTID ARTERIES: Unremarkable at their origins and along their course. JUGULAR VEINS: Unremarkable TONSILS: Not enlarged ORAL CAVITY: Obscured by streak metallic artifact from the patient's dental appliances. No discrete r im-enhancing fluid collection is appreciated. PHARYNX, LARYNX AND TRACHEA: Patent and otherwise unremarkable. No prevertebral soft tissue swelling. SUPERFICIAL SOFT TISSUES: Multiple nonpathologically enlarged or morphologically suspicious lymph nod es are identified within the jugulodigastric space and the cervical chains. THORACIC INLET/VISUALIZED UPPER CHEST: The lung apices are clear. SKELETAL: Degenerative disease at the level of C5/C6 and C6/C7 with osteophyte formation and disc spa ce narrowing. Straightening of the normal curvature of the cervical spine is present. IMPRESSION: 1. No rim-enhancing fluid collections identified suggest abscess formation, as detailed above. Reviewed, dictated and finalized at location A. OR [employer]EL[employer]
[2024-07-27 16:38] VITALS: BP 132/80; PULSE 77; RESP 18; TEMP 36.8; O2SAT 99
--- NOTE | 2024-07-27 17:14 | ED.DENTAL ---
HPI - Dental/Oral General Chief complaint: Dental/Oral <Emelia Cabello PA-C - Last Filed: 07/27/24 17:28> Stated complaint: dental infection <Emelia Cabello PA-C - Last Filed: 07/27/24 17:28> Time Seen by Provider: 07/27/24 17:15 <ISIS Mars Last Filed: 07/27/24 17:28> Focused HPI: Patient is a 59-year-old female who presents the ED with report of facial swelling and dental pain. Patient reports she was diagnosed with bilateral upper molar dental infections recently, teeth # 2 and 15. She has been on 1 antibiotic for 6 days and has been on tetracycline 500mg q6h for past 3 days. states the pain has been worsening and she is now having swelling into her right facial cheek and up towards her right cheondoism. Has been taking Tylenol for the pain without improvement. Was sent by her primary care doctor today for IV antibiotics. Patient denies fevers. Is scheduled to see her dentist on Wednesday to have the right upper tooth removed. GENERAL: Well-appearing, well-nourished, and in no acute distress. HEAD: Normocephalic, atraumatic. ENT: No stridor trismus. Bilateral upper molars with cavities, focal surrounding tenderness along gumline. No obvious focal fluctuance or drainage. CHEST: Clear to auscultation. ?No respiratory distress. HEART: Regular rate and rhythm.? NEURO: ?Alert and oriented x3. Patient screened in triage and initial orders placed.? ?Additional care and disposition to be based upon?diagnostic testing and treatment. <ISIS Mars Last Filed: 07/27/24 17:28> Source: patient <ISIS Mars Last Filed: 07/27/24 17:28> Mode of arrival: ambulatory <ISIS Mars Last Filed: 07/27/24 17:28> Limitations: no limitations <ISIS Mars Last Filed: 07/27/24 17:28> Related Data Home medications: Home Medications Medication Instructions Recorded Confirmed atorvastatin 40 mg tablet 40 mg PO DAILY 03/12/20 05/03/24 fluoxetine 20 mg capsule 40 mg PO DAILY 03/12/20 05/03/24 hydrochlorothiazide 12.5 mg tablet 12.5 mg PO DAILY 03/12/20 05/03/24 venlafaxine 75 mg capsule,extended 37.5 mg PO DAILY 12/18/20 05/03/24 release 24 hr (Effexor XR) nitroglycerin 0.4 mg sublingual 0.4 mg sublingual Q5M PRN Chest 06/02/21 05/03/24 tablet Pain cariprazine 4.5 mg capsule 1.5 mg PO DAILY 04/13/22 05/03/24 (Vraylar) hydroxyzine HCl 50 mg tablet 50 mg PO BID PRN anxiety 04/13/22 05/03/24 buspirone 10 mg tablet 7.5 mg PO BID 10/21/22 05/03/24 cyanocobalamin (vitamin B-12) 1,000 mcg PO DAILY 04/11/23 05/03/24 1,000 mcg tablet amlodipine 10 mg tablet 10 mg PO DAILY 08/14/23 05/03/24 famotidine 20 mg tablet (Pepcid) 20 mg PO QHS PRN reflux 10/22/23 05/03/24 meloxicam 15 mg tablet 15 mg PO DAILY 10/22/23 05/03/24 <Emelia Cabello PA-C - Last Filed: 07/27/24 17:28> Allergies/adverse reactions: Allergies Allergy/AdvReac Type Severity Reaction Status Date / Time codeine Allergy Severe Dyspnea / Verified 05/03/24 18:24 SOB NSAIDS (Non-Steroidal Allergy Severe Difficulty Verified 05/03/24 18:24 Anti-Inflamma Breathing Penicillins Allergy Severe Difficulty Verified 05/03/24 18:24 Breathing Sulfa (Sulfonamide Allergy Severe Difficulty Verified 05/03/24 18:24 Antibiotics) Breathing aspirin Allergy Intermediate Hives Verified 05/03/24 18:24 erythromycin base Allergy Intermediate Hives Verified 05/03/24 18:24 ciprofloxacin Allergy Unknown Unknown Verified 05/03/24 18:24 <Emelia Cabello PA-C - Last Filed: 07/27/24 17:28> Review of Systems Review of Systems: CONSTITUTIONAL: Denies fever ENT: Reports dentalgia <Eileen L. Phan, PA-C - Last Filed: 07/27/24 19:29> All systems reviewed & are unremarkable except as noted in HPI and below <Eileen Phan PA-C - Last Filed: 07/27/24 19:29> [facility] Past Medical History Medical History: Medical History Abnormal fasting glucose glucose normal at 96 with hemoglobin A1c 5.6 on 06/03/2021. Fasting glucose 116 with hemoglobin A1c 5.7 on 02/16/2023. Hemoglobin A1c 6.1 on 10/15/2023. Abscessed tooth Acute bronchitis Atypical chest pain Bipolar disorder BMI 27.0-27.9,adult BMI 28.0-28.9,adult BMI 29.0-29.9,adult BMI 30.0-30.9,adult BMI 32.0-32.9,adult Chronic anxiety Chronic headaches Colon polyps Colonoscopy was normal on 01/25/2024 with recheck in 5 years. Coronary artery disease Cardiac catheterization 2017 with 20% lesion in the distal circumflex artery with normal echocardiogram 2018 and stress test in 2019 followed by manufacturing sr engineer [id number] (05/20/21) Cut of skin of left index finger Edema of both lower extremities due to peripheral venous insufficiency (~2021) venous Doppler on 09/29/2022 with no evidence of DVT. Significant venous insufficiency of the right greater and small saphenous veins. Elevated liver enzymes (02/16/23) AST normal at 33 with ALT elevated at 53 on 02/16/2023. Essential (primary) hypertension Exposure to COVID-19 virus Frequent headaches History of kidney stones Hormone replacement therapy Patient stopped due to noncompliance Irritable bowel syndrome with constipation Kidney stones Mixed hyperlipidemia total cholesterol 116, triglycerides 266, HDL 34 and LDL 42 on 06/03/2021. Cholesterol 156, triglycerides 380, HDL 39, LDL 67 on 02/16/2023. Obesity (BMI 30.0-34.9) Obstructive sleep apnea failure on CPAP Osteoarthritis, multiple sites Overweight (BMI 25.0-29.9) Pain of finger of left hand Pharyngitis Screening for breast cancer Seasonal allergies Suprapubic pain Tobacco abuse Vitamin B12 deficiency (02/16/23) level low at 305 with goal greater than 400 with folic acid and 2.9 in hemoglobin 13.9 on 02/16/2023. <Emelia Cabello PA-C - Last Filed: 07/27/24 17:28> Surgical History Surgical History: Surgical History H/O tubal ligation History of ankle surgery Hx of abdominal surgery Hx of appendectomy Hx of section 1989, 1991 Hx of cholecystectomy Hx of foot surgery x3 Hx of hysterectomy partial and full <Emelia Cabello PA-C - Last Filed: 07/27/24 17:28> Family History Family History: Family History Father Diabetes mellitus Grandparent Cerebrovascular accident Grandparent Cancer Sibling Cancer <Emelia Cabello PA-C - Last Filed: 07/27/24 17:28> Social History Social History: Social History Smoking packs per day: 0.5 Smoking cigarettes per day: 10.0 Years smoked: 10 Smoking pack-years: 5.00 Smoking status: Current every day smoker Tobacco type: cigarettes Alcohol intake: never Substance use: current Substance use type: marijuana Other substance usage details: gummies on occasion Last use: 01/04 Lack of Transportation: YES Lack of Food: Never True Current Housing: I Have Housing Concerned About Future Housing: No Difficulty Paying Gas/Electric Bills: No Difficulty Paying for Meds: No Currently Unemployed: No Education: High School Diploma/GED Difficulty w/ Childcare or Family Care: No Living arrangements: with friend(s) Gender identity (if verbalized by the patient): Female Spiritual care concerns: No <Emelia Cabello PA-C - Last Filed: 07/27/24 17:28> Exam Narrative: GENERAL: Well-appearing, well-nourished, and in no acute distress. HEAD: Normocephalic, atraumatic. EYES: EOMI. ENT: Nares clear, no rhinorrhea or epistaxis. Mucous membranes moist. Oropharynx without tonsillar hypertrophy exudate or other lesions. Tooth #2 tender to palpation, no surrounding erythema or fluctuance to suggest abscess NECK: Supple. No adenopathy or masses. CHEST: No respiratory distress. HEART: Regular rate EXTREMITIES: Normal range of motion. No edema. SKIN: Warm, dry, no rash. NEURO: No focal deficits. Alert and oriented x3. PSYCH: Normal mood and affect <ISIS Alvarez Last Filed: 07/27/24 19:29> Course Course Emergency Course: Patient updated on her workup and agrees with plan of care <ISIS Alvarez Last Filed: 07/27/24 19:29> Vital Signs Vital signs: Vital Signs Temperature 98.3 F 07/27/24 16:38 Pulse Rate 77 07/27/24 16:38 Respiratory Rate 18 07/27/24 16:38 Blood Pressure 132/80 07/27/24 16:38 Pulse Oximetry 99 07/27/24 16:38 Oxygen Delivery Room Air 07/27/24 16:38 Temperature 98.3 F 07/27/24 16:38 Pulse Rate 81 07/27/24 19:19 Respiratory Rate 18 07/27/24 19:19 Blood Pressure 121/87 07/27/24 19:19 Pulse Oximetry 100 07/27/24 19:19 Oxygen Delivery Room Air 07/27/24 16:38 <Emelia Cabello PA-C - Last Filed: 07/27/24 17:28> Vital Signs Temperature 98.3 F 07/27/24 16:38 Pulse Rate 77 07/27/24 16:38 Respiratory Rate 18 07/27/24 16:38 Blood Pressure 132/80 07/27/24 16:38 Pulse Oximetry 99 07/27/24 16:38 Oxygen Delivery Room Air 07/27/24 16:38 Temperature 98.3 F 07/27/24 16:38 Pulse Rate 81 07/27/24 19:19 Respiratory Rate 18 07/27/24 19:19 Blood Pressure 121/87 07/27/24 19:19 Pulse Oximetry 100 07/27/24 19:19 Oxygen Delivery Room Air 07/27/24 16:38 <ISIS Alvarez Last Filed: 07/27/24 19:29> MDM - Dental/Oral MDM Narrative Medical decision making narrative: MSE by GHASSAN in triage. <Emelia Cabello PA-C - Last Filed: 07/27/24 17:28> MSE by GHASSAN in triage. Patient presents to the emergency department reporting a possible dental abscess. She is afebrile and nontoxic appearing. CBC with leukocytosis to 13.3. Metabolic panel without concerning findings. CT soft tissue neck is without evidence of abscess. Patient given 1st dose of antibiotics IV in the ER. Will be continued on oral antibiotics. Instructed to have further follow-up with her dentist. She was given warnings to return to the ER <Eileen Phan PA-C - Last Filed: 07/27/24 19:29> Differential Diagnosis Differential diagnosis: Likely dental caries, toothache and dental abscess <Eileen Phan PA-C - Last Filed: 07/27/24 19:29> Lab Data Attestation: I reviewed the patient's lab results. <Eileen Phan PA-C - Last Filed: 07/27/24 19:29> Result diagrams: 07/27/24 17:39 07/27/24 17:39 <Emelia Cabello PA-C - Last Filed: 07/27/24 17:28> Labs: Lab Results 07/27/24 Range/Units 17:39 WBC 13.3 H (4.5-10.0) K/mm3 RBC 4.90 (4.2-5.4) M/mm3 Hgb 14.3 (12.0-15.0) g/dL Hct 41.2 (37.0-47.0) % MCV 84.1 (80-100) fl MCH 29.2 (26-34) pg MCHC 34.7 (32-36) g/dl RDW 14.7 H (11.5-14.5) % Plt Count 414 H (150-375) k/mm3 MPV 8.5 (7.4-10.4) fl Immature Gran % (Auto) 0.9 H (0-0.5) % Neut % (Auto) 64.7 (45.5-73.1) % Lymph % (Auto) 25.6 (18.3-44.2) % [place] % (Auto) 6.8 (2.6-8.5) % Eos % (Auto) 1.4 (0-4.4) % Baso % (Auto) 0.6 (0.2-1.2) % Lymph # (Auto) 3.41 H (0.9-3.2) K/mm3 [place] # (Auto) 0.9 H (0.1-0.6) K/mm3 Eos # (Auto) 0.2 (0-0.3) K/mm3 Baso # (Auto) 0.1 (0.0-0.1) K/mm3 Abs Immat Gran (auto) 0.12 H (0.00-0.031) K/mm3 Absolute Neuts (auto) 8.6 H (1.3-6.7) K/mm3 Absolute Nucleated RBC 0.000 (0.0-0.012) K/mm3 Nucleated RBC % 0.0 (0.0-0.2) % Sodium 137 (137-145) mmol/L Potassium 3.6 (3.4-5.0) mmol/L Chloride 101 (98-107) mmol/L Carbon Dioxide 23 (22-30) mmol/L Anion Gap 13 H (4-12) mmol/L BUN 20 H (7-17) mg/dL Creatinine 0.70 (0.7-1.0) mg/dL Estim Creat Clear Calc 87 ml/min Estimated GFR > 60 (59 - ) Glucose 103 (65-110) mg/dL Calcium 9.6 (8.4-10.2) mg/dL <Emelia Cabello PA-C - Last Filed: 07/27/24 17:28> Lab Results 07/27/24 Range/Units 17:39 WBC 13.3 H (4.5-10.0) K/mm3 RBC 4.90 (4.2-5.4) M/mm3 Hgb 14.3 (12.0-15.0) g/dL Hct 41.2 (37.0-47.0) % MCV 84.1 (80-100) fl MCH 29.2 (26-34) pg MCHC 34.7 (32-36) g/dl RDW 14.7 H (11.5-14.5) % Plt Count 414 H (150-375) k/mm3 MPV 8.5 (7.4-10.4) fl Immature Gran % (Auto) 0.9 H (0-0.5) % Neut % (Auto) 64.7 (45.5-73.1) % Lymph % (Auto) 25.6 (18.3-44.2) % [place] % (Auto) 6.8 (2.6-8.5) % Eos % (Auto) 1.4 (0-4.4) % Baso % (Auto) 0.6 (0.2-1.2) % Lymph # (Auto) 3.41 H (0.9-3.2) K/mm3 [place] # (Auto) 0.9 H (0.1-0.6) K/mm3 Eos # (Auto) 0.2 (0-0.3) K/mm3 Baso # (Auto) 0.1 (0.0-0.1) K/mm3 Abs Immat Gran (auto) 0.12 H (0.00-0.031) K/mm3 Absolute Neuts (auto) 8.6 H (1.3-6.7) K/mm3 Absolute Nucleated RBC 0.000 (0.0-0.012) K/mm3 Nucleated RBC % 0.0 (0.0-0.2) % Sodium 137 (137-145) mmol/L Potassium 3.6 (3.4-5.0) mmol/L Chloride 101 (98-107) mmol/L Carbon Dioxide 23 (22-30) mmol/L Anion Gap 13 H (4-12) mmol/L BUN 20 H (7-17) mg/dL Creatinine 0.70 (0.7-1.0) mg/dL Estim Creat Clear Calc 87 ml/min Estimated GFR > 60 (59 - ) Glucose 103 (65-110) mg/dL Calcium 9.6 (8.4-10.2) mg/dL <Eileen Phan PA-C - Last Filed: 07/27/24 19:29> Imaging Data Radiologist's impression: ITS Impressions Soft Tissue Neck CT 07/27/24 18:53 IMPRESSION: 1. No rim-enhancing fluid collections identified suggest abscess formation, as detailed above. <Eileen Phan PA-C - Last Filed: 07/27/24 19:29> Critical Care Time Critical Care Time Critical Care Time: No <ISIS Alvarez Last Filed: 07/27/24 19:29> Discharge Plan Discharge Clinical Impression: Toothache <ISIS Mars Last Filed: 07/27/24 17:28> Patient Disposition: Home, Self-Care <ISIS Mars Last Filed: 07/27/24 17:28> Condition: Stable <ISIS Mars Last Filed: 07/27/24 17:28> Instructions: Antibiotic Form, Toothache (ED) <ISIS Mars Last Filed: 07/27/24 17:28> Additional Instructions: Return to the Emergency Department if you experience fever >101, increasing swelling and redness of your tooth, or any other symptoms that are concerning to you Take antibiotic as prescribed. Tylenol or Ibuprofen as needed for pain. Follow up with your dentist <ISIS Mars Last Filed: 07/27/24 17:28> Prescriptions: New clindamycin HCl 300 mg capsule 300 mg PO Q6H 10 Days Qty: 40 0RF No Action hydrochlorothiazide 12.5 mg tablet 12.5 mg PO DAILY atorvastatin 40 mg tablet 40 mg PO DAILY fluoxetine 20 mg capsule 40 mg PO DAILY nitroglycerin 0.4 mg tablet, sublingual 0.4 mg sublingual Q5M PRN (Reason: Chest Pain) Rx Instructions: do not exceed 3 doses per episode Vraylar 4.5 mg capsule 1.5 mg PO DAILY Patient Comments: prescribed by psychiatrist hydroxyzine HCl 50 mg tablet 50 mg PO BID PRN (Reason: anxiety) Patient Comments: prescribed by psychiatrist venlafaxine [Effexor XR] 75 mg capsule,extended release 24hr 37.5 mg PO DAILY buspirone 10 mg tablet 7.5 mg PO BID Patient Comments: prescribed by psychiatrist meloxicam 15 mg tablet 15 mg PO DAILY famotidine [Pepcid] 20 mg tablet 20 mg PO QHS PRN (Reason: reflux) cephalexin 500 mg capsule 500 mg PO Q6H 7 Days Qty: 28 0RF cyanocobalamin (vitamin B-12) 1,000 mcg tablet 1,000 mcg PO DAILY propranolol 80 mg capsule,extended release 24hr 80 mg PO DAILY Qty: 90 3RF amlodipine 10 mg tablet 10 mg PO DAILY Patient Comments: prescribed by manufacturing sr engineer tramadol 50 mg tablet 50 mg PO Q6H PRN (Reason: pain) 5 Days Qty: 20 0RF Rx Instructions: take with acetaminophen 500 mg q.6 hours p.r.n. for dental pain <Emelia Cabello PA-C - Last Filed: 07/27/24 17:28> Follow-up/Referrals: Bony Orellana MD [Primary Care Provider] - <Emelia Cabello PA-C - Last Filed: 07/27/24 17:28>
[2024-07-27 17:52] LABS: Basophils Absolute Auto 0.1 K/mm3 (0.0-0.1); Basophils Percent Auto 0.6 % (0.2-1.2); Eosinophils Absolute Auto 0.2 K/mm3 (0-0.3); Eosinophils Percent Auto 1.4 % (0-4.4); Hematocrit 41.2 % (37.0-47.0); Hemoglobin 14.3 g/dL (12.0-15.0); Immature Granulocyte Absolute 0.12 K/mm3 (0.00-0.031); Immature Granulocyte Percent A 0.9 % (0-0.5); Lymphocytes Absolute Auto 3.41 K/mm3 (0.9-3.2); Lymphocytes Percent Auto 25.6 % (18.3-44.2); Mean Corpuscular HGB Conc 34.7 g/dl (32-36); Mean Corpuscular Hemoglobin 29.2 pg (26-34); Mean Corpuscular Volume 84.1 fl (80-100); Mean Platelet Volume 8.5 fl (7.4-10.4); Monocytes Absolute Auto 0.9 K/mm3 (0.1-0.6); Monocytes Percent Auto 6.8 % (2.6-8.5); Neutrophils Absolute Auto 8.6 K/mm3 (1.3-6.7); Neutrophils Percent Auto 64.7 % (45.5-73.1); Platelet Count Result 414 k/mm3 (150-375); Red Cell Distribution Width 14.7 % (11.5-14.5); White Blood Count 13.3 K/mm3 (4.5-10.0)
[2024-07-27 18:01] LABS: Anion Gap 13 mmol/L (4-12); Blood Urea Nitrogen 20 mg/dL (7-17); Calcium 9.6 mg/dL (8.4-10.2); Carbon Dioxide 23 mmol/L (22-30); Chloride 101 mmol/L (98-107); Estimated CRCL calculation 87 ml/min; Estimated Glomerular Filt Rate > 60; Glucose 103 mg/dL (65-110); Potassium 3.6 mmol/L (3.4-5.0); Sodium 137 mmol/L (137-145)
[2024-07-27] MEDS: HYDROcodone/acetaminophen (*CRX) 5-325 MG TABLET 1 TAB PO (18:15)
[2024-07-27] MEDS: CLINDAMYCIN 600 MG/D5W 50 ML 600 MG/50 ML PIGGYBACK 100 MG IVPB (18:51)
[2024-07-27] MEDS: ONDANSETRON INJ 4 MG/2 ML VIAL IV PUSH (19:00)
[2024-07-27 19:19] VITALS: BP 121/87; PULSE 81; RESP 18; O2SAT 100
== END 2024-07-27 19:40 | disposition home or self-care (01) ==
PROVIDERS: Physician Assistant; Emergency Provider Physician Assistant; PCP Family Medicine
DX: K08.89 Other specified disorders of teeth and supporting structures (principal); I25.10 Atherosclerotic heart disease of native coronary artery without angina pectoris; I10 Essential (primary) hypertension; E78.2 Mixed hyperlipidemia; E53.8 Deficiency of other specified B group vitamins; E66.9 Obesity, unspecified; Z68.33 Body mass index [BMI] 33.0-33.9, adult; K58.1 Irritable bowel syndrome with constipation; M19.90 Unspecified osteoarthritis, unspecified site; G47.33 Obstructive sleep apnea (adult) (pediatric); F31.9 Bipolar disorder, unspecified; F41.9 Anxiety disorder, unspecified; Z86.16 Personal history of COVID-19; Z87.442 Personal history of urinary calculi; Z86.0100 Personal history of colon polyps, unspecified; Z90.49 Acquired absence of other specified parts of digestive tract; Z90.710 Acquired absence of both cervix and uterus
CPT/HCPCS: 36415; 70491; 80048; 85025; 96374; 96375; 99284; A9270; J2405; Q9967

== ENCOUNTER 2024-10-10 14:53 | Outpatient (CLI) | payer OTHER, SELFPAY ==
[2024-10-10 15:57] LABS: Alanine Aminotransferase 33 U/L (6-35); Albumin Level 4.4 g/dL (3.5-5.1); Alkaline Phosphatase 72 U/L (38-126); Anion Gap 12 mmol/L (4-12); Aspartate Amino Transferase 24 U/L (14-36); Bilirubin,Total 0.7 mg/dL (0.2-1.3); Blood Urea Nitrogen 14 mg/dL (7-17); Calcium 9.7 mg/dL (8.4-10.2); Carbon Dioxide 22 mmol/L (22-30); Chloride 104 mmol/L (98-107); Cholesterol 164 mg/dL (0-200); Estimated Glomerular Filt Rate > 60; Glucose 127 mg/dL (65-110); HDL Direct 37 mg/dL; Sodium 138 mmol/L (137-145); Triglycerides 304 mg/dL (<150)
[2024-10-10 16:09] LABS: Hemoglobin A1C 6.5 % (<5.7); LDL Cholesterol Direct 86 mg/dL
== END 2024-10-10 14:54 | disposition home or self-care (01) ==
LOC: ANHIMG 14:56
PROVIDERS: PCP Family Medicine; Visit Provider Nurse Practitioner Family
DX: E78.2 Mixed hyperlipidemia (principal); I10 Essential (primary) hypertension; E53.8 Deficiency of other specified B group vitamins; R73.01 Impaired fasting glucose
CPT/HCPCS: 36415; 80053; 80061; 82607; 83036; 84443

== ENCOUNTER 2025-03-15 14:04 | Outpatient (CLI) | payer OTHER, SELFPAY ==
[2025-03-15 14:45] LABS: Alanine Aminotransferase 25 U/L (6-35); Albumin Level 4.3 g/dL (3.5-5.1); Alkaline Phosphatase 48 U/L (38-126); Anion Gap 12 mmol/L (4-12); Aspartate Amino Transferase 25 U/L (14-36); Bilirubin,Total 0.5 mg/dL (0.2-1.3); Blood Urea Nitrogen 14 mg/dL (7-17); Carbon Dioxide 23 mmol/L (22-30); Chloride 105 mmol/L (98-107); Cholesterol 143 mg/dL (0-200); Estimated Glomerular Filt Rate > 60; Glucose 129 mg/dL (65-110); HDL Direct 38 mg/dL; Potassium 3.2 mmol/L (3.4-5.0); Sodium 140 mmol/L (137-145); Total Protein 7.4 g/dL (6.3-8.2); Triglycerides 334 mg/dL (<150)
[2025-03-15 14:57] LABS: LDL Cholesterol Direct 60 mg/dL
== END 2025-03-15 14:05 | disposition home or self-care (01) ==
PROVIDERS: PCP Family Medicine; Visit Provider Family Medicine
DX: E78.2 Mixed hyperlipidemia (principal); E11.9 Type 2 diabetes mellitus without complications
CPT/HCPCS: 36415; 80053; 80061; 83036

== ENCOUNTER 2025-05-30 08:22 | Outpatient (CLI) | payer OTHER, SELFPAY ==
--- OUTSIDE RECORDS SUMMARY | 2025-02-27 06:00 | XMS_ITS ---
Author Organization [facility] Address [address] [facility] [address] [place] [address] Care Team Providers Care Director Of Technology Name Role Phone Tere Boogie Primary Care Provider [phone] Kandis Zaragoza [phone] REASON FOR VISIT Telehealth pt @[facility] provider in [facility] 3 mo fu med management Encounters Encounter Location Date Provider Diagnosis [address] [id number] 02/27/2025 Kandis Zaragoza Plan Of Treatment Next Appt Details Provider Name:Tere Wen Keagan, 06/07/2025 10:00:00 AM, [address] [place] [address], [phone], Provider Name:Tere Behzad Boogie, 06/28/2025 11:00:00 AM, [address] [place] [address], [phone], Provider Name:Tere Behzad Boogie, 06/28/2025 11:00:00 AM, [address] [place] [address], [phone], Progress Notes * Mena KENT LDOB:[birth year] (59 yo F)Acc No.[id number]:02/27/2025 UNLOCKED PROGRESS NOTE Telehealth Visit Patient: Sharmin claire Mena Finney Provider: IVELISSE Mendoza :1965 A ge:59 Y S ex:Female Date:02/27/2025 Address:[address] [place] [address] RD, [id number] Pcp:Tere Boogie Subjective: * Chief Complaints: * T elehealth pt @[facility] provider in [facility] 3 mo fu med management * Active Problem List 530.81 Esophageal reflux Onset Date:06/13/2013 272.4 Other and unspecifie d hyperlipidemia Onset Date:06/13/2013 346.00 Migraine with aura, without mention of intractable migraine without mention of status migrainosus Onset Date:06/13/2013 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 Onset Date:06/13/2013 783.1 Abnormal weight gain Onset Date:06/13/2013 391.0 Acute rheumatic daphne carditis Onset Date:06/13/2013 564.1 Irritable bowel synd arlette Onset Date:06/13/2013 278.00 Obesity, unspecified Onset Date:06/13/2013 784.0 Headache Onset Date:06/13/2013 F31.32 Bipolar affective di sorder, currently depressed, moderate Modified On:02/03/2023W/U Status:confirmed F41.1 FRANCES (generalized anx iety disorder) Modified On:02/03/2023/U Status:confirmed E66.09 Other obesity due to excess calories Modified On:11/13/2021W/U Status:confirmed F41.0 Panic attacks Modified On:11/02/2022W/U Status:confirmed F43.22 Adjustment disorder with anxiety Modified On:04/26/2025W/U Status:confirmed * Electronic signature of IVELISSE Brennan on 05/30/2025 at 12:33 AM CDT Sign off status: Pending Visit Status: P rovCx (Provider Cancel/Reschedule) * Provider: IVELISSE Mendoza Date: 02/27/2025 Generated for Maykel rankin/Norma/eTginsmitting on: 05/30/2025 12:33 AM CDT
[2025-05-30 08:46] LABS: Add Urine Microscopic? NO; Appearance Urine Clear (Clear); Glucose Urine UA Negative (Negative); Leukocyte Esterase Ur Negative LEU/UL (Negative); Nitrate Urine Negative (Negative); Specific Grav Ur 1.013 (1.001-1.035)
[2025-05-30 08:47] LABS: Hematocrit 38.7 % (37.0-47.0); Hemoglobin 13.1 g/dL (12.0-15.0); Immature Granulocyte Percent A 0.2 % (0-0.5); Lymphocytes Absolute Auto 2.77 K/mm3 (0.9-3.2); Mean Corpuscular HGB Conc 33.9 g/dl (32-36); Mean Corpuscular Hemoglobin 28.6 pg (26-34); Mean Corpuscular Volume 84.5 fl (80-100); Nucleated Red Blood Cells Absolute Auto 0.000 K/mm3 (0.0-0.012); Nucleated Red Blood Cells Perc 0.0 % (0.0-0.2); Platelet Count Result 415 k/mm3 (150-375); Red Blood Count 4.58 M/mm3 (4.2-5.4); White Blood Count 9.8 K/mm3 (4.5-10.0)
--- OUTSIDE RECORDS SUMMARY | 2025-05-30 08:47 | XMS_ITS | Patient Health Record ---
Author Organization [facility] Address [facility] [address] Care Team Providers Care Cylinder Devalver Name Role Phone KeaganTere Primary Care Provider [phone] Kandis Zaragoza Unavailable [phone] Essence Denney Unavailable [phone] Allergies Allergen (clinical drug ingredient) Drug/Non Drug Allergy documented on EMR Reaction Allergy Type Onset Date Status Substance with penicillin structure and antibacterial mechanism of action (substance) all cillins (uncoded) rash Allergy Active Non-steroidal anti-inflammatory agent (FN) Nsaids (non-steroidal Anti-inflammatory Drug) (uncoded) Unknown Allergy Active Substance with sulfonamide structure and antibacterial mechanism of action (substance) Sulfa (sulfonamide Antibiotics) (uncoded) Unknown Allergy Active Ciprofloxacin Unknown Drug Allergy Act jojo ciprofloxacin Ciprofloxacin Hcl Unknown Drug Allergy Active erythromycin Erythromycin Base Unknown Drug Allergy Active ibuprofen Ibuprofen Unknown Drug Allergy Active quetiapine Quetiapine Fumarate sedation Drug Allergy Active Reason For Referral Reason Patient expresses in terest in counseling services and prefers tele counseling Diagnosis 1 Adjustment disorder with anxiety (F43.22) Referral Organization [facility] Referring Provider First Name Tere Referring Provider Last Name Keagan Referring Provider Speciality Psychiatry Referred Provider Specialty Mental healt h counseling Referral Priority Routine Medications Medication SIG (Take, Route, Frequency, Duration) Notes Start Date End Date Status hydrOXYzine HCl 50 MG Tablet 1 capsule Orally twice per day As needed for anxiety, may take at bedtime as needed Active Losartan Potassium 25 MG Tablet 1 tablet Orally Once a day Active Meloxicam 7.5 MG Tablet 1 tablet Orally Once a day Active metFORMIN HCl ER 500 MG Tablet Extended Release 24 Hour Oral; Duration: 30 Days Active Propranolol HCl ER 80 MG Capsule Extended Release 24 Hour 1 capsule Orally Once a day Active Venlafaxine HCl ER 75 MG Capsule Extended Release 24 Hour 1 capsule with food Orally Once a day Active SUMAtriptan Succinate 25 MG Tablet TAKE 1 TABLET BY MOUTH AT ONSET OF HEADACHE, IF NO RELIEF MAY REPEAT 1 TAB AFTER AT LEAST 2 HRS Oral; Duration: 30 Days Active Vraylar 1.5 MG Capsule 1 capsule Orally Once a day Active busPIRone HCl 10 MG Capsule 1 tablet Ora lly Twice a day; Duration: 30 days Active amLODIPine Besylate 2.5 MG Tablet 1 tablet Orally Once a day Active Atorvastatin Calcium 40 MG Tablet 1 tablet Orally Once a day Active hydroCHLOROthiazide 25 MG Tablet take 1 tablet by oral route every day Oral ([facility]) 06/21/2013 Active clonazePAM 0.5 MG Tablet 1 tablet Orally Once a day; Duration: 15 days 04/26/2025 Active Topiramate 200 MG Tablet 1 tablet Orally Once a day Active Immunizations Vaccine Route Administration Date Status Comme nts Pfizer-BioNTech Covid-19 Vac cine (FEDERAL STOCK) Unknown 03/10/2021 Administered Pfizer-BioNTech Covid-19 Vac cine (FEDERAL STOCK) Unknown 04/01/2021 Administered Social History Tobacco Use: Social History Observation Description Date Details (start date - stop date) Current Smoker NA - NA Social History [facility] As sessment Social Info Question Answer Notes Household/Enviromental Risk Factors: Any Patient/Famil y Concerns : No Do you have any social/cultu ral characteristics? Social Characteristics: Yes Highest level of education: GED Concerns with daily living situations: None Support from family/friends: Yes Participation in community activities: No Cultural Characteristics: No Communication Barriers Are: Mental Illness Assessment of Health Literacy Understands how to take medication Yes Understands risks/side effects of medication Yes Is the patient able to afford their medication Y es Does patient have an Advanced Directive? No Drugs/Alcohol: Social Info Question Answer Notes Drugs Have you used drugs other than those for medical reasons in the past 12 months? No DAST Form: Social Info Question Answer Notes DAST-10 (2020 Edition) 1. Have you used drugs other than those required for medical reasons? No 2. Do you abuse more than one drug at a time? No 3. Are you always able to stop using drugs when you want to? Yes 4. Have you had blackouts or flashbacks as a result of drug use? No 5. Do you ever feel bad or guilty about your soren g use? No 6. Does your spouse (or pare nts) ever complain about your involvement with drugs? No 7. Have you neglected your f amily because of your use of drugs? No 8. Have you engaged in illeg al activities in order to obtain drugs? No 9. Have you ever experienced withdrawal symptoms (felt sick) when you stopped taking drugs? No 10. Have you had medical pro blems as a result of your drug use (e.g., memory loss, hepatitis, convulsions, bleeding etc.)? No Results: 0 Interpretation of Score: No problems reported Drug/Alcohol: Social Info Question Answer Notes AUDIT-C (Standard) Did you have a drink containing alcohol in the past year? No Points 0 Interpretation Negative Tobacco Use: Social Info Question Answer Notes Tobacco Control (Standard) Tobacco use: Current smoker How often do you smoke cigarettes? Every day How many cigarettes a day do you smoke? 6-10 Tobacco use other than smoking: Are you an other tobacco user? Yes smokes only MJ now Additional Details Category Social Info Options Details Miscellaneous: Exercise: daily Home smoke detector use: smoke d etectors, carbon monoxide detector Marital status: Domestic violence: none Occupation: Unemployed Caffeine: more than 4 cups per day Legal problems: none Sexual abuse: none Verbal abuse: none Living with: significant othe r Smokers in the home: no Self-Management Covid-19 Vaccine Pfizer-BioNTech Dose 1 Admnistered 03/10/2021 Pfizer BioNTech Dose 2 Administred 04/01/2021 Problems Problem Type SNOMED Code ICD Code Onset Dates Problem Status W/U Status Risk Notes Problem Hyperlipidemia (52913753) Other and unspecified hyperlipidemia (272.4) 013 Active confirmed ([facility]) Added By: Yris Tam Problem Obesity (930604023) Obesity, unspecified (278.00) 013 Active confirmed ([facility]) Added By: Yris Tam Problem Migraine with aura (5165089) Migraine with aura, without mention of intractable migraine without mention of status migrainosus (346.00) Active confirmed ([facility]) Added By: Yris Tam Problem Acute rheumatic pericarditis (79068093) Acute rheumatic pericarditis (391.0) Active confirmed ([facility]) Added By: Yris Tam Problem Esophageal reflux (692926868) Esophageal reflux (530.81) Active confirmed ([facility]) Added By: Yris Tam Problem Irritable bowel syndrome (06006371) Irritable bowel syndrome (564.1) Active confirmed ([facility]) Added By: Yris Tam 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) Active confirmed ([facility]) Added By: Yris Tam Problem Abnormal weight gain (057276081) Abnormal weight gain (783.1) Active confirmed ([facility]) Added By: Yris Tam Problem Headache (51843320) Headache (784.0) Active confirmed ([facility]) Added By: Yris Tam Problem Obesity due to excess calories (601238630) Other obesity due to excess calories (E66.09) Active confirmed Problem Adjustment disorder with anxiety (92344876) Adjustment disorder with anxiety (F43.22) Active confirmed Problem Panic disorder (473350503) Panic attacks (F41.0) Active confirmed Problem Generalized anxiety disorder (71363424) FRANCES (generalized anxiety disorder) (F41.1) Active confirmed Problem Bipolar affective disorder, currently depressed, moderate (123487833) Bipolar affective disorder, currently depressed, moderate (F31.32) Active confirmed Vital Signs Heart Rate 91 /min 04/26/2025 Temperature 98.9 degrees Fahrenheit 04/26/2025 Respiratory Rate 18 /min 04/26/2025 Oximetry 96 % 04/26/2025 Blood pressure diastolic 70 mm Hg 04/26/2025 Height-cm 166.37 cm 04/26/2025 Weight-kg 88.63 kg 04/26/2025 Height 65.5 in 04/26/2025 Blood pressure systolic 128 mm Hg 04/26/2025 Weight 195.4 lbs 04/26/2025 BMI 32.02 kg/m2 04/26/2025 Encounters Encounter Location Date Provider Diagnosis [address] [address] 08/07/2024 Essence Emge FRANCES (generalized anxiety disorder) F41.1 and Bipolar affective disorder, currently depressed, moderate F31.[address] [address] 10/06/2024 [facility] Bipolar affective disorder, currently depressed, moderate F31.32 and FRANCES (generalized anxiety disorder) F41.[address] [address] 11/10/2024 [facility] FRANCES (generalized anxiety disorder) F41.1 and Bipolar affective disorder, currently depressed, moderate F31.[address] [address] 12/07/2024 [facility] FRANCES (generalized anxiety disorder) F41.1 and Bipolar affective disorder, currently depressed, moderate F31.[address] [address] 04/06/2025 [facility] FRANCES (generalized anxiety disorder) F41.1 and Bipolar affective disorder, currently depressed, moderate F31.[address] [address] 04/12/2025 Kandis Zaragoza Bipolar affective disorder, currently depressed, moderate F31.32 and FRANCES (generalized anxiety disorder) F41.[address] [address] 04/26/2025 [facility] Bipolar affective disorder, currently depressed, moderate F31.32 and Adjustment disorder with anxiety F43.[address] [address] 04/26/[address] [address] 07/27/2024 Essence Emge Bipolar affective disorder, currently depressed, moderate F31.[address] [address] 08/01/2024 [facility] [address] [place] [address] 08/28/[address] [address] 09/11/[address] [address] 09/19/[address] [address] 10/06/2024 Tere Klemme Bipolar affective disorder, currently depressed, moderate F31.[address] [address] 10/06/2024 Tere Klemme Bipolar affective disorder, currently depressed, moderate F31.32 [facility] [address] [place] [address] 02/20/2025 Tere Klemme Bipolar affective disorder, currently depressed, moderate F31.[address] [address] 04/04/2025 [facility] Bipolar affective disorder, currently depressed, moderate F31.32 and FRANCES (generalized anxiety disorder) F41.[address] [address] 04/09/2025 [facility] [address] [place] [address] 04/11/2025 [facility] [address] [address] 04/17/2025 Kandis Zaragoza [facility] [address] [place] [phone] 04/24/2025 [facility] [address] [address] 04/26/2025 [facility] Adjustment disorder with anxiety F43.22 [facility] [address] [address] 05/08/2025 [facility] Bipolar affective disorder, currently depressed, moderate F31.32 Assessments Encounter Date Diagnosis (ICD Code) Assessment Notes Treatment Notes Treatment Clinical Notes Section Notes 04/04/2025 Bipolar affective disorder, currently depressed, moderate (ICD-10 - F31.32) 08/07/2024 FRANCES (generalized anxiety disorder) (ICD-10 - F41.1) 04/26/2025 Adjustment disorder with anxiety (ICD-10 - F43.22) 04/26/2025 Adjustment disorder with anxiety (ICD-10 - F43.22) 04/26/2025 Bipolar affective disorder, currently depressed, moderate (ICD-10 - F31.32) 04/12/2025 FRANCES (generalized anxiety disorder) (ICD-10 - F41.1) 04/12/2025 Bipolar affective disorder, currently depressed, moderate (ICD-10 - F31.32) 12/07/2024 FRANCES (generalized anxiety disorder) (ICD-10 - F41.1) 12/07/2024 Bipolar affective disorder, currently depressed, moderate (ICD-10 - F31.32) 10/06/2024 FRANCES (generalized anxiety disorder) (ICD-10 - F41.1) 10/06/2024 Bipolar affective disorder, currently depressed, moderate (ICD-10 - F31.32) 10/06/2024 Bipolar affective disorder, currently depressed, moderate (ICD-10 - F31.32) 10/06/2024 Bipolar affective disorder, currently depressed, moderate (ICD-10 - F31.32) 07/27/2024 Bipolar affective disorder, currently depressed, moderate (ICD-10 - F31.32) 04/06/2025 FRANCES (generalized anxiety disorder) (ICD-10 - F41.1) 04/06/2025 Bipolar affective disorder, currently depressed, moderate (ICD-10 - F31.32) 11/10/2024 FRANCES (generalized anxiety disorder) (ICD-10 - F41.1) 11/10/2024 Bipolar affective disorder, currently depressed, moderate (ICD-10 - F31.32) 05/08/2025 Bipolar affective disorder, currently depressed, moderate (ICD-10 - F31.32) 02/20/2025 Bipolar affective disorder, currently depressed, moderate (ICD-10 - F31.32) 08/07/2024 Bipolar affective disorder, currently depressed, moderate (ICD-10 - F31.32) 04/04/2025 FRANCES (generalized anxiety disorder) (ICD-10 - F41.1) 11/10/2024 Other Discussed possible side effects of medications, risk vs benefits, black box warnings, any off-label use and problems to report should they occur. Patient has been advised to call 911 or go to the ER as needed for thoughts of self-harm, SI/HI or worsening symptoms. Pt is to f/u with PCP as directed for routine health maintenance. Pt voices understanding to discussions and agrees with current treatment plan. F/u as directed or sooner if having any new or concerning s/s 08/07/2024 Other Patient expressed understanding of treatment plan. Medication education and sides effects discussed. Emergency services were discussed with patients. Instructed patient to go to ER if having suicidal thoughts. Suicide hotline number is [phone]. 04/06/2025 Other -Plan of care and follow up was discussed with patient. -Instructed to call immediately or go to ER with any worsening of symptoms or any suicidal or homicidal thoughts.-Instruc lazaro to contact psychiatry with any new issues or concerns. -Patient verbalized understanding and agreeable with plan. 10/06/2024 Other Discussed possible side effects of medications, risk vs benefits, black box warnings, any off-label use and problems to report should they occur. Patient has been advised to call 911 or go to the ER as needed for thoughts of self-harm, SI/HI or worsening symptoms. Pt is to f/u with PCP as directed for routine health maintenance. Pt voices understanding to discussions and agrees with current treatment plan. F/u as directed or sooner if having any new or concerning s/s 04/26/2025 Other - ILP reviewed-Educatio n provided regarding current psychotropic medication regimen.-Discusse d potential medication side effect.-Plan of care and follow up was discussed with patient. -Instructed to call immediately or go to ER with any worsening of symptoms or any suicidal or homicidal thoughts.-Instruc lazaro to contact psychiatry with any new issues or concerns. -Patient verbalized understanding and agreeable with plan. 12/07/2024 Other -Education provided regarding current psychotropic medication regimen.-Discusse d potential medication side effect.-Plan of care and follow up was discussed with patient. -Instructed to call immediately or go to ER with any worsening of symptoms or any suicidal or homicidal thoughts.-Instruc lazaro to contact psychiatry with any new issues or concerns. -Patient verbalized understanding and agreeable with plan. 04/12/2025 Other Medication education and side effects discussed. Emergency services were discussed with patient. Instructed patient to go to ER if having suicidal thoughts. Plan Of Treatment Next Appt Details Provider Name:Tere Boogie, 06/07/2025 10:00:00 AM, [address] [place] [address], [phone], Provider Name:Tere Boogie, 06/28/2025 11:00:00 AM, [address] [place] [address], [phone], Provider Name:Tere Boogie, 06/28/2025 11:00:00 AM, [address] [place] [address], [phone], Insurance Providers Payer Name Payer Address Payer Phone Subscriber Number Group Number Insured Name Patient Relationship to Insured Coverage Start Date Coverage End Date [facility] [address] [place] [address] [id number] Mena Hebert Self - patient is the insured 1 [facility] [address] [place] [address] [id number] Mena Hebert Self - patient is the insured 9 [facility] FFS [address] [place] [address] [id number] Mena Hebert Self - patient is the insured 9 [facility] Nonbillable [address] [place] [address] [id number] Mena Hebert Self - patient is the insured 9 Medications Administered Medication Instructions Date of Administration Dosage Notes Ketorolac Injection 05/28/2015 60 mg Ryne d in room for 15 minutes. No reaction. Tolerated well Medical (General) History Medical History History ICD Code Med_System: neurologic; Disease: Headach e, migraine Med_System: gastrointestinal; Disease: I rritable bowel disease Med_System: cardiovascular; Disease: Hyp erlipidemia Med_System: gastrointestinal; Disease: G ERD rheumatic fever as child bipolar kidney stones hernia repair x2 with mesh elevated liver enzymes gall stone without gallbladder Surgical History Surgery Date(Month/Year) Cholecystectomy 2009 Bilateral tubal ligation 2 c sections Appendectomy rt foot surgery 02/2015 HYSTERECTOMY(58896) has one ovary biopsies of bladder 08/2018 Stent Placement in Kidney 02/2019 Stent Removed 03/2019 hernia repair 2020 bladder repair 2020 TOTAL HYSTERECTOMY, WITH OR WITHOUT OVAR IES/TUBES(13694) Hospitalization History Reason Date(Month/Year) [facility] ER panic attacks [facility] 2020 psychiatric hospitalization 24y ago
--- OUTSIDE RECORDS SUMMARY | 2025-05-30 08:47 | XMS_ITS | Clinical Summary ---
Author Organization [facility] Address [address] [place] [address] Care Team Providers Care Oracle Identity Management Consultant Name Role Phone None, Provider MD Primary Care Provider Unavaila ble Allergies Active Allergy Reactions Criticality Noted Date Comments Ciprofloxacin Hives 04/17/2014 Codeine Hives 09/30/2015 Erythromycin Hives 04/17/2014 Nsaids Shortness of Breath High 09/30/2015 Penicillins Itching 04/17/2014 Sulfa Antibiotics Hives 04/17/2014 Medications ALPRAZolam 0.5 MG tablet 05/28/2019 Active atorvastatin 40 MG tablet 06/19/2019 Active busPIRone 7.5 MG tablet 06/19/2019 Active cetirizine 10 MG tablet Take 10 mg by mouth daily. 0 05/11/2019 Active nabumetone 500 MG tablet 09/30/2018 Active omeprazole 20 MG capsule 02/23/2019 Active ELMIRON 100 MG capsule 05/08/2019 Active potassium chloride CR 20 MEQ tablet 06/10/2019 Active propranolol 80 MG tablet 10/21/2018 Active QUEtiapine 25 MG tablet 06/16/2019 Active topiramate 200 MG tablet 06/18/2019 Active Active Problems Problem Noted Date Diagnosed Date Left flank pain 08/16/2019 History of kidney stones 08/16/2019 Ureteral stricture, left 08/16/2019 Family History Medical History Relation Comments Cancer Father Diabetes Father Cancer Mother Heart Disease Mother Hypertension Mother Relation Status Comments Father Mother Social History Tobacco Use Types Packs/Day Years Used Date Smoking Tobacco: Some Days Cigarettes Tobacco Cessation:Ready to Q uit: No Alcohol Use Standard Drinks/Week Comments No 0 (1 standard drink = 0.6 oz pur e alcohol) AUDIT-C Answer Date Recorded Frequency of Alcohol Consumption Never 06/22/2019 Average Number of Drinks Not on file 019 Frequency of Binge Drinking Not on file 11/2018 Comments Unknown Sex and Gender Information Value Date Recorded Sex Assigned at Not on file Legal Sex Female 10:19 PM CDT Gender Identity Not on file Sexual Orientation Not on file Last Filed Vital Signs Vital Sign Reading Time Taken Comments Blood Pressure 118/70 06/22/2019 1:38 PM CDT Pulse - - Temperature 36.7 C (98.1 F) 06/22/2019 1:38 PM CDT Respiratory Rate - - Oxygen Saturation - - Inhaled Oxygen Concentration - - Weight 80.5 kg (177 lb 8 oz) 08/16/2019 9:07 AM 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 Height 165.1 cm (5' 5) 08/16/2019 9:07 AM 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 Body Mass Index 29.54 08/16/2019 9:07 AM 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 Plan of Treatment Health Maintenance Due Date Last Done Comments Colorectal Cancer Screening Colonoscopy (10 Years) 1966 Annual Physical 1969 Hepatitis C 1984 DTaP, Tdap and Td Vaccines ( 1 - Tdap) 1985 Hepatitis B Vaccines (1 of 3 - 19+ 3-dose series) 1985 Pneumococcal Vaccine: 50+ Ye ars (1 of 2 - PCV) 1985 Mammogram Screening 2006 Zoster Vaccines (1 of 2) 2016 COVID-19 Vaccine ( - 2023-2 5 season) 2024 Meningococcal B Vaccine Aged Out No l onger eligible based on patient's age to complete this topic Meningococcal Vaccine Aged Out No angelita bernie eligible based on patient's age to complete this topic RSV Immunizations Under 20 Months Aged Out No longer eligible based on patient's age to complete this topic Insurance [place] [address] Care Teams Oracle Identity Management Consultant Relationship Specialty Start Date End Date None, Provider, PCP - General 06/22/19
--- OUTSIDE RECORDS SUMMARY | 2025-05-30 08:47 | XMS_ITS | Clinical Summary ---
Author Organization [facility] [employer] Address [address] [place] [address] Care Team Providers Care Real Estate Firm Manager Name Role Phone Swathi Banegas Vianney PATHOLOGY TECHNICIAN-ELEPHANT TAMER Primary Care Provider + Source Comments [facility],non-owned Affiliates and Associated Physician Practices is amultiple site organization consisting of ambulatory clinics and hospital sitesin [place], [place], [place] and [place]. This disclosure is being madepursuant to the Care Everywhere program and may not contain all information available regarding this patient. Last updated 18.[facility] [employer] Allergies Active Allergy Reactions Criticality Noted Date Comments Aspirin 09/30/2015 agrivates the cyst in my chest. Ciprofloxacin 04/17/2014 Codeine Urticaria 09/30/2015 Erythromycin Urticaria,Unknown Medium 04/17/2014 Nsaids Shortness of Breath High 09/30/2015 Other 04/17/2014 all the profens Penicillins Itching,Rash Medium 04/17/2014 Sulfa Drugs Urticaria Medium 04/17/2014 Medications * Be aware that medications may not be up to date on this document. Alwaysverify current medications with the patient. busPIRone (BUSPAR) 7.5 MG tablet buspirone 7.5 mg tablet Take 1 tablet twice a day by oral route as directed. 9 Active FLUoxetine (PROZAC) 20 MG capsule 9 Active ALPRAZolam (XANAX) 0.5 MG tablet 9 Active propranolol (INDERAL) 80 MG tablet 9 Active hydroCHLOROthi azide (MICROZIDE) 12.5 MG capsule 9 Active atorvastatin (LIPITOR) 40 MG tablet 9 Active estradiol (ESTROGEL) 0.75 MG/1.25 GM (0.06%) gel 1 pump to skin Active acetaminophen (TYLENOL) 500 MG tablet Take 500 mg by mouth every 4 hours as needed for Fever or Pain Maximum allowable Acetaminophen amount = 4 Grams (4000 mg) / 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 Gender Identity Not on file Sexual Orientation Not on file Last Filed Vital Signs Vital Sign Reading Time Taken Comments Blood Pressure 107/74 09/08/2019 9:46 AM WIRE WRAPPER MACHINE OPERATOR Pulse 82 09/08/2019 9:46 AM WIRE WRAPPER MACHINE OPERATOR Temperature 36.2 C (97.2 F) 09/08/2019 9:46 AM WIRE WRAPPER MACHINE OPERATOR Respiratory Rate 18 09/30/2015 2:56 PM WIRE WRAPPER MACHINE OPERATOR Oxygen Saturation 97% 09/08/2019 9:46 AM WIRE WRAPPER MACHINE OPERATOR Inhaled Oxygen Concentration - - Weight 82.1 kg (181 lb) 09/08/2019 9:46 AM WIRE WRAPPER MACHINE OPERATOR Height 170.2 cm (5' 7) 09/08/2019 9:46 AM WIRE WRAPPER MACHINE OPERATOR Body Mass Index 28.35 09/08/2019 9:46 AM WIRE WRAPPER MACHINE OPERATOR Plan of Treatment Health Maintenance Due Date Last Done Comments COLOGUARD (AGES 45-75) - COL ON CA SCREENING 1966 COLON MONITORING 1966 COLONOSCOPY - COLON CA SCREENING 1966 CT COLONOGRAPHY - COLON CA SCREENING 1966 Colorectal Cancer Screening 1966 FIT - COLON CA SCREENING 1966 FLEX SIG - COLON CA SCREENING 1966 HIV SCREENING 1981 HEPATITIS C SCREENING 06/04/1984 DTAP/TDAP/TD VACCINES (1 - Tdap) 1985 HEPATITIS B VACCINE (1 of 3 - 19+ 3-dose series) 1985 MAMMOGRAM 02/16/2016 02/15/2014 PNEUMOCOCCAL VACCINE 50+ (1 of 1 - PCV) 2016 ZOSTER VACCINE (1 of 2) 2016 SCREENING FOR DIABETES 09/08/2022 9, 08/16/2018, 09/30/2015 DEPRESSION SCREENING 09/20/2024 COVID-19 VACCINE (1 - 2023-2 5 season) 2025 INFLUENZA VACCINE (#1) 2025 HIB VACCINE Aged Out No longer eligi ble based on patient's age to complete this topic HPV VACCINE Aged Out No longer eligi ble based on patient's age to complete this topic MENINGOCOCCAL (Group B) VACCINE SHARED DECISION-MAKING Aged Out No longer eligible based on patient's age to complete this topic MENINGOCOCCAL GROUPS A/C/Y/W VACCINE Aged Out No longer eligible b ased on patient's age to complete this topic Procedures Procedure Name Priority Date/Time Associated Diagnosis Comments BASIC METABOLIC PANEL (CALCIUM TOTAL) Routine 09/08/2019 10:48 AM WIRE WRAPPER MACHINE OPERATOR Hyperlipidemia, unspecified hyperlipidemia type MAMMO BILAT SCREENING Routine 02/15/2014 3:30 PM CDT Other screening mammogram from Last 3 Months or Most Recently Relevant to Health Maintenance Results * BASIC METABOLIC PANEL (CALCIUM TOTAL) (09/08/2019 10:48 AM WIRE WRAPPER MACHINE OPERATOR) BUN 14 7 - 26 mg/dL 09/08/2019 11:14 AM [facility] Creatinine 0.8 0.6 - 1.2 mg/dL 09/08/2019 11:14 AM [facility] Sodium 142 136 - 145 mmol/L 09/08/2019 11:14 AM [facility] Potassium 4.0 3.5 - 4.5 mmol/L 09/08/2019 11:14 AM [facility] Chloride 106 98 - 107 mmol/L 09/08/2019 11:14 AM [facility] CO2 25 22 - 29 mmol/L 09/08/2019 11:14 AM [facility] Glucose 105 70 - 115 mg/dL 09/08/2019 11:14 AM [facility] Calcium 9.4 8.4 - 10.2 mg/dL 09/08/2019 11:14 AM [facility] Anion Gap 15 8 - 18 09/08/2019 11:14 AM [facility] BUN/Creatinine Ratio 18 7 - 23 09/08/2019 11:14 AM [facility] Osmolality Calculated 295 270 - 300 mOsm/kg 09/08/2019 11:14 AM [facility] eGFR >60 >60 mL/min/1.7 3 m2 09/08/2019 11:14 AM [facility] Blood BLOOD SPECIMEN / Unknown Lab Venipuncture / Unknown 09/08/2019 10:48 AM WIRE WRAPPER MACHINE OPERATOR 09/08/2019 10:50 AM [facility] us Ordering Provider Unlisted MD LAB - CHEMISTRY OR DERABLES Final Result [facility] [address] [place] [address] * KATHLEEN SCREENING DIGITAL BILATERAL (02/15/2014 3:30 PM CDT) Anatomical Region Laterality Modality Breast Bilateral Mammography 02/15/2014 4:36 PM CDT Impressions 02/16/2014 4:55 PM CDT 1. BI-RADS Category 2. 2. Annual screening mammography recommended. A) A negative report should not delay a biopsy if a dominant or clinically suspicious mass is present. B) Adenosis and dense breasts may obscure an underlying neoplasm. C) Study interpreted with computer-aided detection. MQSA BI-RADS Categories: Category 0 - needs additional imaging evaluation. Category 1 - negative. Category 2 - benign findings. Category 3 - probably benign findings, but short interval followup is recommended. Category 4 - suspicious abnormality and biopsy should be considered though the lesion may well be benign. Category 5 - highly suggestive of malignancy and appropriate action should be taken. Narrative 02/16/2014 4:55 PM CDT DIGITAL BILATERAL SCREENING MAMMOGRAM WITH COMPUTER DIAGNOSIS 02/15/2014: HISTORY: Screening examination. No complaints listed referable to either breast. Breast carcinoma in sister age 49. COMPARISON: 07/06/2013, 11/25/2012, 11/09/2012 and 2012 mammogram. 06/22/2012 MRI breast. FINDINGS: Moderately dense and nodular parenchymal pattern bilaterally. Benign-appearing nodularity and calcification again demonstrated. Parenchymal pattern has similar appearance to the prior studies. Nothing specific for malignancy in either breast. Procedure Note Evelin Toribio MD - 02/16/2014 DIGITAL BILATERAL SCREENING MAMMOGRAM WITH COMPUTER DIAGNOSIS 02/15/2014: HISTORY: Screening examination. No complaints listed referable to either breast. Breast carcinoma in sister age 49. COMPARISON: 07/06/2013, 11/25/2012, 11/09/2012 and 2012 mammogram. 06/22/2012 MRI breast. FINDINGS: Moderately dense and nodular parenchymal pattern bilaterally. Benign-appearing nodularity and calcification again demonstrated. Parenchymal pattern has similar appearance to the prior studies. Nothing specific for malignancy in either breast. IMPRESSION 1. BI-RADS Category 2. 2. Annual screening mammography recommended. A) A negative report should not delay a biopsy if a dominant or clinically suspicious mass is present. B) Adenosis and dense breasts may obscure an underlying neoplasm. C) Study interpreted with computer-aided detection. MQSA BI-RADS Categories: Category 0 - needs additional imaging evaluation. Category 1 - negative. Category 2 - benign findings. Category 3 - probably benign findings, but short interval followup is recommended. Category 4 - suspicious abnormality and biopsy should be considered though the lesion may well be benign. Category 5 - highly suggestive of malignancy and appropriate action should be taken. Nate Gabriel MD MAMMO ORDERABLES Final Resu lt from Last 3 Months or Most Recently Relevant to Health Maintenance Insurance [facility] [address] [id number] MEDICAID - [place] [employer] [facility] [phone] [facility] * Guarantor: [employer] Account Type Relation to Patient Date of Phone Billing Address Personal/Family 1965 [facility] Care Teams Real Estate Firm Manager Relationship Specialty Start Date End Date Swathi Banegas, PATHOLOGY TECHNICIAN-ELEPHANT TAMER [address] [facility] [address] [place] [address] PCP - General 09/08/19
[2025-05-30 09:04] LABS: Hemoglobin A1C 6.0 % (<5.7)
[2025-05-30 09:09] LABS: Alanine Aminotransferase 25 U/L (6-35); Albumin Level 4.3 g/dL (3.5-5.1); Alkaline Phosphatase 63 U/L (38-126); Anion Gap 14 mmol/L (4-12); Aspartate Amino Transferase 23 U/L (14-36); Bilirubin,Total 0.5 mg/dL (0.2-1.3); Blood Urea Nitrogen 12 mg/dL (7-17); Calcium 9.9 mg/dL (8.4-10.2); Carbon Dioxide 21 mmol/L (22-30); Chloride 105 mmol/L (98-107); Cholesterol 144 mg/dL (0-200); Estimated Glomerular Filt Rate > 60; Glucose 116 mg/dL (65-110); HDL Direct 37 mg/dL; Magnesium 1.6 mg/dL (1.6-2.3); Potassium 3.8 mmol/L (3.4-5.0); Sodium 140 mmol/L (137-145); Total Protein 7.5 g/dL (6.3-8.2); Triglycerides 382 mg/dL (<150)
[2025-05-30 09:45] LABS: Thyroid Stimulating Hormone 3.410 uIU/mL (0.465-4.680)
[2025-05-30 10:04] LABS: Vitamin B12 359.0 pg/mL (239-931)
[2025-05-30 11:07] LABS: MALB Creatinine Ratio 12.2 mg/g (0-30)
[2025-05-31 07:09] LABS: GGT 78 IU/L (0-60)
== END 2025-05-30 08:23 | disposition home or self-care (01) ==
LOC: ANHLAB 08:23
PROVIDERS: PCP Family Medicine; Visit Provider Family Medicine
DX: E53.8 Deficiency of other specified B group vitamins (principal); E11.9 Type 2 diabetes mellitus without complications; R74.8 Abnormal levels of other serum enzymes; E78.2 Mixed hyperlipidemia; E87.6 Hypokalemia
CPT/HCPCS: 36415; 80048; 80061; 80076; 81003; 82043; 82607; 82977; 83036; 83735; 84443; 85025